=== PATIENT | male | born 1940 | race Hispanic/Latino ===

== ENCOUNTER 2021-05-06 15:39 | Inpatient (IN) | payer MEDICARE ==
[~2021-05-06 15:39] MED LIST: Iopamidol-370 76% 500 ML 1 ML ONE
[2021-05-06] MEDS ORDERED: Albuterol 200 PUFF (6.7GM INHALER) ONE (16:21)
[2021-05-06 16:24] LABS: #Basophils 0.1 thou/uL (0.0-0.2); #Eosinphils 0.2 thou/uL (0.0-0.7); #Monocytes 0.7 thou/uL (0.11-0.59); #Neutrophils 6.6 thou/uL (1.40-6.50); %Basophils 0.7 % (0.0-1.0); %Eosinophils 2.6 % (0.0-10.0); %Lymphocytes 12.1 % (21.0-51.0); %Neutrophils 76.7 % (42.0-75.0); Hemoglobin 13.8 g/dL (14.0-18.0); Mean Corpuscular HGB CONC 33.9 g/dL (32.0-36.0); Mean Corpuscular Hemoglobin 29.4 pg (27.0-31.0); Mean Corpuscular Volume 86.5 fL (78.0-98.0); Mean Platelet Volume 8.1 fL (7.4-10.4); Platelet Count 281 thou/uL (130-400); RBC Distribution Width 14.7 % (11.5-14.5); Red Blood Cell (RBC) Count 4.71 mill/uL (4.70-6.10); White Blood Cell (WBC) Count 8.6 thou/uL (4.8-10.8)
[2021-05-06 16:39] LABS: ALT (SGPT) 34 U/L (8-55); AST (SGOT) 20 U/L (5-34); Albumin 3.8 g/dL (3.4-4.8); Alkaline Phosphatase 149 U/L (40-110); Anion Gap 18 mmol/L (10-20); BUN (Urea Nitrogen) 14 mg/dL (8.4-25.7); Bilirubin, Total 0.8 mg/dL (0.2-1.2); Calc. Creatinine Clearance 0 mL/min (70-130); Calcium 8.9 mg/dL (7.8-10.44); Carbon Dioxide 19 mmol/L (23-31); Chloride 104 mmol/L (98-107); Globulin 3.8 g/dL (2.4-3.5); Glucose 143 mg/dL (83-110); Magnesium 1.8 mg/dL (1.6-2.6); Potassium 3.8 mmol/L (3.5-5.1); Protein, Total 7.6 g/dL (5.8-8.1); Sodium 137 mmol/L (136-145)
[2021-05-06] MEDS ORDERED: cefTRIAXone\\ROCEPHIN 2 GM VIAL ONE (16:43)
[2021-05-06] MEDS ORDERED: Azithromycin 500 MG VIAL ONE (16:43)
[2021-05-06] MEDS ORDERED: Furosemide 40 MG/4 ML VIAL ONE (17:14)
[2021-05-06 18:21] LABS: SARS-CoV-2 NAA Rapid Test Not Detected (NotDetected)
[2021-05-06 18:32] LABS: Bilirubin Negative (Negative); Blood, Urine Negative (Negative); Clarity Clear (Clear); Glucose, Urine (Dipstick) Normal (Negative); Ketone, Urine Negative (Negative); Leukocyte Negative Leu/uL (Negative); Nitrite Negative (Negative); Protein, Urine (Dipstick) 10 mg/dL (Neg-Trace); Specific Gravity, Urine 1.018 (1.002-1.036); Urobilinogen Normal mg/dL (Less than 2)
[2021-05-06] MEDS ORDERED: Ondansetron PF 4 MG/2 ML Vial IVP PRN (18:54)
[2021-05-06] MEDS ORDERED: Bisacodyl 5 MG TAB PO PRN (18:54)
[2021-05-06] MEDS ORDERED: HYDROcodone/Acetaminophen 5/325 mg Tablet PO PRN (18:54)
[2021-05-06] MEDS ORDERED: Senokot S 8.6-50 MG TAB PO PRN (18:54)
[2021-05-06] MEDS ORDERED: Enoxaparin Sodium 40 MG/0.4 ML SYRINGE SC SCH (19:00)
[2021-05-06] MEDS ORDERED: hydrALAZINE 20 MG/ML VIAL SLOW IVP PRN (19:13)
[2021-05-06 19:14] LABS: Lactic Acid 3.8 mmol/L (0.5-2.2)
[2021-05-06 19:22] LABS: Troponin I 0.034 ng/mL (< 0.028)
[2021-05-06] MEDS: Famotidine/PF 20 mg/2ml Vial SLOW IVP SCH (20:35)
[2021-05-06] MEDS: hydrOXYzine 25 MG TAB PO PRN (20:36)
[2021-05-06] MEDS ORDERED: Sodium Chloride 0.9% 250 ML IV SCH (20:45)
[2021-05-06] MEDS ORDERED: Dextrose 50% Abboject 50 ML SYRINGE SLOW IVP PRN (20:58)
[2021-05-06] MEDS ORDERED: Dextrose 5% in Water 1,000 ML IV PRN (20:58)
[2021-05-06] MEDS ORDERED: Insulin Regular 300 UNITS/3 ML VIAL SC PRN (20:58)
[2021-05-06] MEDS ORDERED: Furosemide 20 MG/2 ML VIAL SLOW IVP SCH (22:00)
[2021-05-06 22:55] LABS: Troponin I 0.038 ng/mL (< 0.028)
[2021-05-06 23:05] VITALS: BMI 24.3
[2021-05-07 06:22] LABS: #Eosinphils 0.2 thou/uL (0.0-0.7); #Monocytes 0.7 thou/uL (0.11-0.59); #Neutrophils 5.2 thou/uL (1.40-6.50); %Basophils 0.2 % (0.0-1.0); %Eosinophils 2.7 % (0.0-10.0); %Lymphocytes 14.2 % (21.0-51.0); %Monocytes 9.4 % (0.0-10.0); %Neutrophils 73.5 % (42.0-75.0); Hemoglobin 13.3 g/dL (14.0-18.0); Mean Corpuscular HGB CONC 33.1 g/dL (32.0-36.0); Mean Corpuscular Hemoglobin 28.7 pg (27.0-31.0); Mean Corpuscular Volume 86.9 fL (78.0-98.0); Mean Platelet Volume 8.3 fL (7.4-10.4); Platelet Count 242 thou/uL (130-400); Red Blood Cell (RBC) Count 4.61 mill/uL (4.70-6.10)
[2021-05-07] MEDS: hydrOXYzine 25 MG TAB PO PRN (06:28)
[2021-05-07] MEDS: Furosemide 20 MG/2 ML VIAL SLOW IVP SCH ×2 (06:28→17:11)
[2021-05-07 06:30] LABS: Hemoglobin A1c 5.6 % (4.0-6.0)
[2021-05-07 06:40] LABS: Lactic Acid 2.8 mmol/L (0.5-2.2)
[2021-05-07 06:54] LABS: Anion Gap 17 mmol/L (10-20); BUN (Urea Nitrogen) 15 mg/dL (8.4-25.7); Calc. Creatinine Clearance 86 mL/min (70-130); Calcium 8.8 mg/dL (7.8-10.44); Carbon Dioxide 20 mmol/L (23-31); Cardiac Risk 5.9 (Less than 4.5); Chloride 106 mmol/L (98-107); Cholesterol 123 mg/dl (< 200 Desired); Glucose 137 mg/dL (83-110); HDL Cholesterol 21 mg/dL (>60 Neg Risk); LDL Cholesterol, Calculated 84 mg/dL; Potassium 3.6 mmol/L (3.5-5.1); Sodium 139 mmol/L (136-145); Triglycerides 91 mg/dL (Less than 150)
[2021-05-07] MEDS: Famotidine/PF 20 mg/2ml Vial SLOW IVP SCH ×2 (08:49→21:16)
[2021-05-07] MEDS ORDERED: FLU VACC QS2021-22(65YR UP)/PF 240 MCG/0.7 ML SYRINGE IM ONE (09:00)
[2021-05-07] MEDS: HumaLOG 300 UNITS/3 ML VIAL SC PRN ×2 (10:58→17:11)
[2021-05-07] MEDS ORDERED: Diltiazem 125 MG in Sodium Chloride 0.9% 100 ML IVPB SCH ×2 (13:30→14:00)
[2021-05-07] MEDS: hydrOXYzine 25 MG TAB PO SCH ×2 (14:43→21:16)
[2021-05-07] MEDS: Acetaminophen 325 MG TAB PO PRN (16:34)
[2021-05-07] MEDS: metFORMIN 500 MG TAB PO SCH (17:11)
[2021-05-07] MEDS: Carvedilol 3.125 MG TAB PO SCH (17:11)
[2021-05-07] MEDS ORDERED: Azithromycin 500 MG in Sodium Chloride 0.9% 250 ML 250 ML IVPB SCH (18:00)
[2021-05-07] MEDS ORDERED: Enoxaparin Sodium 40 MG/0.4 ML SYRINGE SC SCH (21:00)
[2021-05-07] MEDS: Azithromycin 500 MG in Sodium Chloride 0.9% 250 ML 250 ML IVPB SCH (21:15)
[2021-05-07] MEDS: Atorvastatin Calcium 10 MG TAB PO SCH (21:16)
[2021-05-07] MEDS: Melatonin 3 MG TAB PO PRN (21:16)
[2021-05-07] MEDS: Docusate 100 MG CAP PO SCH (21:16)
[2021-05-07] MEDS: Enoxaparin Sodium 80 MG/0.8 ML SYRINGE SC SCH (21:17)
[2021-05-07] MEDS: cefTRIAXone\\ROCEPHIN 2 GM in Sodium Chloride 0.9% 100 ML IVPB SCH (22:11)
[2021-05-08 05:05] LABS: #Eosinphils 0.2 thou/uL (0.0-0.7); #Lymphocytes 1.1 thou/uL (1.20-3.40); #Monocytes 0.8 thou/uL (0.11-0.59); #Neutrophils 6.1 thou/uL (1.40-6.50); %Basophils 0.3 % (0.0-1.0); %Lymphocytes 13.7 % (21.0-51.0); %Monocytes 9.1 % (0.0-10.0); %Neutrophils 74.9 % (42.0-75.0); Hemoglobin 12.8 g/dL (14.0-18.0); Mean Corpuscular HGB CONC 33.4 g/dL (32.0-36.0); Mean Corpuscular Volume 86.6 fL (78.0-98.0); Mean Platelet Volume 8.5 fL (7.4-10.4); Platelet Count 236 thou/uL (130-400); RBC Distribution Width 14.9 % (11.5-14.5); Red Blood Cell (RBC) Count 4.44 mill/uL (4.70-6.10); White Blood Cell (WBC) Count 8.2 thou/uL (4.8-10.8)
[2021-05-08 05:29] LABS: Anion Gap 17 mmol/L (10-20); BUN (Urea Nitrogen) 23 mg/dL (8.4-25.7); Calc. Creatinine Clearance 81 mL/min (70-130); Calcium 8.7 mg/dL (7.8-10.44); Carbon Dioxide 21 mmol/L (23-31); Chloride 104 mmol/L (98-107); Glucose 109 mg/dL (83-110); Potassium 3.2 mmol/L (3.5-5.1); Sodium 139 mmol/L (136-145)
[2021-05-08] MEDS: hydrOXYzine 25 MG TAB PO SCH ×3 (06:15→21:01)
[2021-05-08] MEDS: Furosemide 20 MG/2 ML VIAL SLOW IVP SCH ×2 (06:15→18:22)
[2021-05-08] MEDS: Cholecalciferol 1,000 UNITS (25 MCG) TAB PO SCH (08:15)
[2021-05-08] MEDS: Aspirin 81 mg Enteric Coated Tablet PO SCH (08:15)
[2021-05-08] MEDS: glipiZIDE 10 MG TAB PO SCH (08:15)
[2021-05-08] MEDS: Carvedilol 3.125 MG TAB PO SCH ×3 (08:16→20:55)
[2021-05-08] MEDS: Docusate 100 MG CAP PO SCH ×2 (08:16→20:56)
[2021-05-08] MEDS: Enoxaparin Sodium 80 MG/0.8 ML SYRINGE SC SCH (08:16)
[2021-05-08] MEDS: Famotidine/PF 20 mg/2ml Vial SLOW IVP SCH ×2 (08:16→20:56)
[2021-05-08] MEDS: metFORMIN 500 MG TAB PO SCH ×2 (08:16→16:34)
[2021-05-08] MEDS: Fish Oil 1,000 MG CAP PO SCH (08:33)
[2021-05-08] MEDS ORDERED: Non-Formulary Item 1 EACH (Cholecalciferol (Vitamin D3) [Vitamin D3] 1,000 UNIT Capsule) PO SCH (09:00)
[2021-05-08] MEDS: Potassium Chloride 20 MEQ TAB PO SCH ×2 (11:51→16:35)
[2021-05-08] MEDS ORDERED: Communication Order-Pharmacy FS SCH (14:30)
[2021-05-08] MEDS ORDERED: Calcium Carbonate 500 MG ChewTAB PO PRN (16:40)
[2021-05-08] MEDS: cefTRIAXone\\ROCEPHIN 2 GM in Sodium Chloride 0.9% 100 ML IVPB SCH (20:55)
[2021-05-08] MEDS: Atorvastatin Calcium 10 MG TAB PO SCH (20:55)
[2021-05-08] MEDS: Guaifenesin DM 100-10/5 ML UDCUP PO PRN (22:46)
[2021-05-08] MEDS: Azithromycin 500 MG in Sodium Chloride 0.9% 250 ML 250 ML IVPB SCH (22:46)
[2021-05-09 05:28] LABS: #Eosinphils 0.4 thou/uL (0.0-0.7); #Neutrophils 5.4 thou/uL (1.40-6.50); %Basophils 0.5 % (0.0-1.0); %Eosinophils 4.8 % (0.0-10.0); %Lymphocytes 12.7 % (21.0-51.0); %Monocytes 12.3 % (0.0-10.0); %Neutrophils 69.7 % (42.0-75.0); Hemoglobin 13.1 g/dL (14.0-18.0); Mean Corpuscular HGB CONC 30.9 g/dL (32.0-36.0); Mean Corpuscular Hemoglobin 27.2 pg (27.0-31.0); Mean Corpuscular Volume 88.3 fL (78.0-98.0); Mean Platelet Volume 8.6 fL (7.4-10.4); Platelet Count 209 thou/uL (130-400); RBC Distribution Width 14.8 % (11.5-14.5); Red Blood Cell (RBC) Count 4.82 mill/uL (4.70-6.10); White Blood Cell (WBC) Count 7.7 thou/uL (4.8-10.8)
[2021-05-09] MEDS ORDERED: Sodium Chloride 0.9% 1,000 ML IV SCH ×2 (06:00→08:36)
[2021-05-09 06:05] LABS: Anion Gap 16 mmol/L (10-20); BUN (Urea Nitrogen) 17 mg/dL (8.4-25.7); Calc. Creatinine Clearance 86 mL/min (70-130); Calcium 8.6 mg/dL (7.8-10.44); Carbon Dioxide 19 mmol/L (23-31); Chloride 104 mmol/L (98-107); Glucose 107 mg/dL (83-110); Potassium 3.4 mmol/L (3.5-5.1); Sodium 136 mmol/L (136-145)
[2021-05-09] MEDS: hydrOXYzine 25 MG TAB PO SCH ×4 (06:14→23:15)
[2021-05-09] MEDS ORDERED: Heparin 10,000 UNITS/ 10 ML VIAL ONE (06:37)
[2021-05-09] MEDS ORDERED: Lidocaine 1% (PF) 30 ML VIAL ONE ×2 (06:38→07:22)
[2021-05-09] MEDS ORDERED: Midazolam HCl 2 mg/2 ml Vial ONE (07:15)
[2021-05-09] MEDS ORDERED: Fentanyl 100 MCG/2 ML VIAL ONE (07:15)
[2021-05-09] MEDS ORDERED: Atropine Sulfate 1 mg/1 ml Vial ONE (07:23)
[2021-05-09] MEDS ORDERED: Atropine Sulfate 1 mg/10 ml Syringe ONE (07:23)
[2021-05-09] MEDS: Furosemide 20 MG/2 ML VIAL SLOW IVP SCH (07:35)
[2021-05-09] MEDS ORDERED: Protamine Sulfate 50 MG/5 ML VIAL ONE (08:07)
[2021-05-09] MEDS ORDERED: Furosemide 20 MG/2 ML VIAL SLOW IVP SCH (08:30)
[2021-05-09] MEDS ORDERED: Acetaminophen/Codeine 30-300mg Tablet PO PRN ×2 (08:34)
[2021-05-09] MEDS ORDERED: Sodium Chloride 0.9% 200 ML IV PRN (08:34)
[2021-05-09] MEDS ORDERED: Nitroglycerin 0.4 MG TAB (25 Tab Bottle) SL PRN (08:34)
[2021-05-09] MEDS ORDERED: Iopamidol 370 76% 100 ML VIAL ONE (09:22)
[2021-05-09] MEDS ORDERED: Iopamidol 370 76% 50 ML VIAL FS ONE (09:22)
[2021-05-09] MEDS: glipiZIDE 10 MG TAB PO SCH (10:48)
[2021-05-09] MEDS: metFORMIN 500 MG TAB PO SCH ×2 (10:48→16:34)
[2021-05-09] MEDS: Famotidine/PF 20 mg/2ml Vial SLOW IVP SCH ×2 (11:03→20:37)
[2021-05-09] MEDS: Docusate 100 MG CAP PO SCH ×2 (11:03→20:37)
[2021-05-09] MEDS: Aspirin 81 mg Enteric Coated Tablet PO SCH (11:03)
[2021-05-09] MEDS: Amiodarone 200 MG TAB PO SCH ×2 (11:03→20:36)
[2021-05-09] MEDS: Fish Oil 1,000 MG CAP PO SCH (11:04)
[2021-05-09] MEDS: Cholecalciferol 1,000 UNITS (25 MCG) TAB PO SCH (11:06)
[2021-05-09] MEDS: Carvedilol 3.125 MG TAB PO SCH ×3 (11:08→20:37)
[2021-05-09] MEDS: Potassium Chloride 20 MEQ TAB PO SCH ×2 (11:14→15:22)
[2021-05-09] MEDS: Furosemide 40 MG/4 ML VIAL SLOW IVP SCH (15:22)
[2021-05-09] MEDS: Azithromycin 500 MG in Sodium Chloride 0.9% 250 ML 250 ML IVPB SCH (20:36)
[2021-05-09] MEDS: Guaifenesin DM 100-10/5 ML UDCUP PO PRN (20:37)
[2021-05-09] MEDS: Atorvastatin Calcium 20 MG TAB PO SCH (20:37)
[2021-05-09] MEDS: cefTRIAXone\\ROCEPHIN 2 GM in Sodium Chloride 0.9% 100 ML IVPB SCH (22:49)
[2021-05-09] MEDS: Melatonin 3 MG TAB PO PRN (22:50)
[2021-05-10 05:00] LABS: #Eosinphils 0.2 thou/uL (0.0-0.7); #Lymphocytes 1.3 thou/uL (1.20-3.40); #Monocytes 1.1 thou/uL (0.11-0.59); #Neutrophils 7.6 thou/uL (1.40-6.50); %Basophils 0.3 % (0.0-1.0); %Eosinophils 1.9 % (0.0-10.0); %Lymphocytes 12.9 % (21.0-51.0); %Monocytes 10.6 % (0.0-10.0); %Neutrophils 74.3 % (42.0-75.0); Hemoglobin 12.3 g/dL (14.0-18.0); Mean Corpuscular Hemoglobin 27.9 pg (27.0-31.0); Mean Platelet Volume 8.6 fL (7.4-10.4); Platelet Count 289 thou/uL (130-400); RBC Distribution Width 14.7 % (11.5-14.5); Red Blood Cell (RBC) Count 4.43 mill/uL (4.70-6.10); White Blood Cell (WBC) Count 10.2 thou/uL (4.8-10.8)
[2021-05-10] MEDS: Furosemide 40 MG/4 ML VIAL SLOW IVP SCH ×2 (05:16→14:59)
[2021-05-10 05:18] LABS: Anion Gap 13 mmol/L (10-20); BUN (Urea Nitrogen) 18 mg/dL (8.4-25.7); Calc. Creatinine Clearance 69 mL/min (70-130); Calcium 8.3 mg/dL (7.8-10.44); Carbon Dioxide 26 mmol/L (23-31); Chloride 101 mmol/L (98-107); Glucose 146 mg/dL (83-110); Potassium 4.4 mmol/L (3.5-5.1); Sodium 136 mmol/L (136-145)
[2021-05-10] MEDS: Carvedilol 3.125 MG TAB PO SCH ×3 (09:16→20:58)
[2021-05-10] MEDS: Fish Oil 1,000 MG CAP PO SCH (09:16)
[2021-05-10] MEDS: metFORMIN 500 MG TAB PO SCH (09:16)
[2021-05-10] MEDS: Cholecalciferol 1,000 UNITS (25 MCG) TAB PO SCH (09:16)
[2021-05-10] MEDS: Amiodarone 200 MG TAB PO SCH ×2 (09:17→20:58)
[2021-05-10] MEDS: Aspirin 81 mg Enteric Coated Tablet PO SCH (09:17)
[2021-05-10] MEDS: hydrOXYzine 25 MG TAB PO SCH ×2 (09:17→14:59)
[2021-05-10] MEDS: glipiZIDE 10 MG TAB PO SCH (09:17)
[2021-05-10] MEDS: Docusate 100 MG CAP PO SCH ×2 (09:17→20:58)
[2021-05-10] MEDS: Famotidine/PF 20 mg/2ml Vial SLOW IVP SCH ×2 (09:17→20:58)
[2021-05-10] MEDS: Acetaminophen 325 MG TAB PO PRN ×2 (11:38→22:38)
[2021-05-10] MEDS ORDERED: Benzonatate 100 MG CAP PO SCH (15:30)
[2021-05-10] MEDS ORDERED: Azithromycin 250 MG TAB PO SCH (20:00)
[2021-05-10] MEDS: Melatonin 3 MG TAB PO PRN (20:57)
[2021-05-10] MEDS: Benzonatate 100 MG CAP PO SCH (20:58)
[2021-05-10] MEDS: cefTRIAXone\\ROCEPHIN 2 GM in Sodium Chloride 0.9% 100 ML IVPB SCH (20:58)
[2021-05-10] MEDS: Atorvastatin Calcium 20 MG TAB PO SCH (20:58)
[2021-05-11] MEDS: hydrOXYzine 25 MG TAB PO SCH ×2 (01:41→08:51)
[2021-05-11 04:43] LABS: #Eosinphils 0.9 thou/uL (0.0-0.7); #Lymphocytes 1.2 thou/uL (1.20-3.40); #Monocytes 0.9 thou/uL (0.11-0.59); #Neutrophils 5.9 thou/uL (1.40-6.50); %Basophils 0.1 % (0.0-1.0); %Eosinophils 10.5 % (0.0-10.0); %Lymphocytes 13.3 % (21.0-51.0); %Monocytes 9.6 % (0.0-10.0); %Neutrophils 66.4 % (42.0-75.0); Mean Corpuscular HGB CONC 32.6 g/dL (32.0-36.0); Mean Corpuscular Hemoglobin 28.5 pg (27.0-31.0); Mean Corpuscular Volume 87.5 fL (78.0-98.0); Mean Platelet Volume 8.9 fL (7.4-10.4); Platelet Count 229 thou/uL (130-400); RBC Distribution Width 14.7 % (11.5-14.5); Red Blood Cell (RBC) Count 3.86 mill/uL (4.70-6.10); White Blood Cell (WBC) Count 8.9 thou/uL (4.8-10.8)
[2021-05-11 05:02] LABS: Anion Gap 13 mmol/L (10-20); BUN (Urea Nitrogen) 24 mg/dL (8.4-25.7); Calc. Creatinine Clearance 65 mL/min (70-130); Calcium 8.2 mg/dL (7.8-10.44); Carbon Dioxide 25 mmol/L (23-31); Chloride 100 mmol/L (98-107); Glucose 131 mg/dL (83-110); Potassium 3.7 mmol/L (3.5-5.1); Sodium 134 mmol/L (136-145)
[2021-05-11] MEDS: Furosemide 40 MG/4 ML VIAL SLOW IVP SCH (06:31)
[2021-05-11] MEDS ORDERED: Metolazone 5 MG TAB PO SCH (08:00)
[2021-05-11] MEDS: Amiodarone 200 MG TAB PO SCH (08:47)
[2021-05-11] MEDS: Fish Oil 1,000 MG CAP PO SCH (08:47)
[2021-05-11] MEDS: Docusate 100 MG CAP PO SCH (08:48)
[2021-05-11] MEDS: Aspirin 81 mg Enteric Coated Tablet PO SCH (08:48)
[2021-05-11] MEDS: glipiZIDE 10 MG TAB PO SCH (08:48)
[2021-05-11] MEDS: Famotidine/PF 20 mg/2ml Vial SLOW IVP SCH (08:48)
[2021-05-11] MEDS: Benzonatate 100 MG CAP PO SCH (08:48)
[2021-05-11] MEDS: Cholecalciferol 1,000 UNITS (25 MCG) TAB PO SCH (08:48)
[2021-05-11] MEDS: Carvedilol 3.125 MG TAB PO SCH (08:48)
[2021-05-11] MEDS ORDERED: Apixaban 5 MG TAB PO SCH (09:00)
[2021-05-11 11:29] VITALS: BP 119/63; TEMP 98.3
[2021-05-11] MEDS ORDERED: Furosemide 40 MG TAB PO SCH (14:00)
== END 2021-05-11 14:40 | disposition home or self-care (01) | DRG 871 ==
LOC: ERS 15:39 → 2NO 18:20
PROVIDERS: ADMIT Family Medicine; ATTEND Internal Medicine
PROC: 4A023N8 Measurement of Cardiac Sampling and Pressure, Bilateral, Percutaneous Approach (ICD-10-PCS; principal; 2021-05-09)
PROC: B2111ZZ Fluoroscopy of Multiple Coronary Arteries using Low Osmolar Contrast (ICD-10-PCS; 2021-05-09)
DX: A41.9 Sepsis, unspecified organism (principal); J18.9 Pneumonia, unspecified organism; I50.21 Acute systolic (congestive) heart failure; E87.1 Hypo-osmolality and hyponatremia; I11.0 Hypertensive heart disease with heart failure; E11.9 Type 2 diabetes mellitus without complications; F41.9 Anxiety disorder, unspecified; E11.69 Type 2 diabetes mellitus with other specified complication; I34.0 Nonrheumatic mitral (valve) insufficiency; Z20.822 Contact with and (suspected) exposure to COVID-19; L29.9 Pruritus, unspecified; E78.00 Pure hypercholesterolemia, unspecified; I35.0 Nonrheumatic aortic (valve) stenosis; I48.91 Unspecified atrial fibrillation; I44.7 Left bundle-branch block, unspecified; Z90.49 Acquired absence of other specified parts of digestive tract; Z87.891 Personal history of nicotine dependence; Z79.82 Long term (current) use of aspirin; Z79.899 Other long term (current) drug therapy; Z72.89 Other problems related to lifestyle
CPT/HCPCS: 0240U; 36415; 36416; 71045; 71275; 80048; 80053; 80061; 81003; 83036; 83605; 83735; 83880; 84443; 84484; 85025; 85347; 87040; 87086; 93005; 93010; 93306; 93460; 93798; 94640; 94664; 96365; 96366; 96375; 97139; 99152; 99153; J0456; J0461; J0696; J1644; J1650; J1815; J1940; J2001; J2250; J2720; J3010; J3490; J7030; J7050; J7620; Q9967; S0028

== ENCOUNTER 2021-06-06 18:06 | Inpatient (IN) | payer MEDICARE, OTHER ==
[2021-06-06] MEDS ORDERED: Atropine Sulfate 1 mg/10 ml Syringe ONE (19:57)
[2021-06-06 20:03] LABS: #Eosinphils 0.1 thou/uL (0.0-0.7); #Lymphocytes 0.8 thou/uL (1.20-3.40); #Monocytes 0.7 thou/uL (0.11-0.59); #Neutrophils 5.7 thou/uL (1.40-6.50); %Basophils 0.3 % (0.0-1.0); %Eosinophils 0.8 % (0.0-10.0); %Lymphocytes 10.4 % (21.0-51.0); %Monocytes 10.3 % (0.0-10.0); %Neutrophils 78.3 % (42.0-75.0); Hemoglobin 11.7 g/dL (14.0-18.0); Mean Corpuscular Hemoglobin 28.3 pg (27.0-31.0); Mean Corpuscular Volume 85.8 fL (78.0-98.0); Mean Platelet Volume 8.1 fL (7.4-10.4); Platelet Count 200 thou/uL (130-400); RBC Distribution Width 15.8 % (11.5-14.5); Red Blood Cell (RBC) Count 4.13 mill/uL (4.70-6.10); White Blood Cell (WBC) Count 7.2 thou/uL (4.8-10.8)
[2021-06-06] MEDS ORDERED: DOPamine 400 MG/D5W 250 ML 0 ML ONE (20:07)
[2021-06-06 20:23] LABS: INR-International Normal Ratio 1.7; Prothrombin Time 20.3 sec (12.0-14.7)
[2021-06-06 20:27] LABS: ALT (SGPT) 24 U/L (8-55); AST (SGOT) 24 U/L (5-34); Albumin 3.2 g/dL (3.4-4.8); Alkaline Phosphatase 131 U/L (40-110); Anion Gap 14 mmol/L (10-20); BUN (Urea Nitrogen) 23 mg/dL (8.4-25.7); Calc. Creatinine Clearance 0 mL/min (70-130); Calcium 8.4 mg/dL (7.8-10.44); Carbon Dioxide 24 mmol/L (23-31); Chloride 100 mmol/L (98-107); Globulin 3.5 g/dL (2.4-3.5); Glucose 113 mg/dL (83-110); Potassium 4.8 mmol/L (3.5-5.1); Protein, Total 6.7 g/dL (5.8-8.1); Sodium 133 mmol/L (136-145)
[2021-06-06 20:36] LABS: Lipase 13 U/L (8-78); Magnesium 1.5 mg/dL (1.6-2.6)
[2021-06-06] MEDS ORDERED: DOBUTamine 500 mg/250 ml 250 ML ONE (20:49)
[2021-06-06] MEDS ORDERED: Magnesium 2 GM/50 ML BAG (IN WATER) ONE (21:33)
[2021-06-06 22:36] LABS: SARS-CoV-2 NAA Rapid Test Not Detected (NotDetected)
[2021-06-06] MEDS ORDERED: Furosemide 40 MG/4 ML VIAL ONE (23:04)
[2021-06-06] MEDS ORDERED: DOBUTamine 500 mg/250 ml 500 MG in Premix Bag 1 BAG IVPB SCH (23:45)
[2021-06-06] MEDS ORDERED: Ondansetron PF 4 MG/2 ML Vial IVP PRN (23:48)
[2021-06-06] MEDS ORDERED: Dextrose 5% in Water 1,000 ML IV PRN (23:50)
[2021-06-06] MEDS ORDERED: Dextrose 50% Abboject 50 ML SYRINGE SLOW IVP PRN (23:50)
[2021-06-06] MEDS ORDERED: HumaLOG 300 UNITS/3 ML VIAL SC PRN (23:50)
[2021-06-07] MEDS ORDERED: Magnesium 2 GM/50 ML 2 GM in Premix Bag 1 BAG IVPB SCH (00:30)
[2021-06-07 01:02] VITALS: BMI 24.0
[2021-06-07 03:48] LABS: White Blood Cell (WBC) Count 5.9 thou/uL (4.8-10.8)
[2021-06-07 03:49] LABS: #Eosinphils 0.2 thou/uL (0.0-0.7); #Monocytes 0.6 thou/uL (0.11-0.59); #Neutrophils 4.1 thou/uL (1.40-6.50); %Basophils 0.4 % (0.0-1.0); %Eosinophils 2.9 % (0.0-10.0); %Lymphocytes 16.6 % (21.0-51.0); %Monocytes 10.3 % (0.0-10.0); %Neutrophils 69.7 % (42.0-75.0); Hemoglobin 11.3 g/dL (14.0-18.0); Mean Corpuscular HGB CONC 32.5 g/dL (32.0-36.0); Mean Corpuscular Hemoglobin 27.8 pg (27.0-31.0); Mean Corpuscular Volume 85.5 fL (78.0-98.0); Platelet Count 179 thou/uL (130-400); Red Blood Cell (RBC) Count 4.06 mill/uL (4.70-6.10)
[2021-06-07 04:01] LABS: Anion Gap 12 mmol/L (10-20); BUN (Urea Nitrogen) 21 mg/dL (8.4-25.7); Calc. Creatinine Clearance 70 mL/min (70-130); Calcium 8.6 mg/dL (7.8-10.44); Carbon Dioxide 26 mmol/L (23-31); Chloride 98 mmol/L (98-107); Glucose 107 mg/dL (83-110); Potassium 3.9 mmol/L (3.5-5.1); Sodium 132 mmol/L (136-145)
[2021-06-07 04:09] LABS: Magnesium 2.5 mg/dL (1.6-2.6)
[2021-06-07] MEDS: Furosemide 40 MG/4 ML VIAL SLOW IVP SCH ×2 (06:41→15:06)
[2021-06-07] MEDS: Enoxaparin Sodium 40 MG/0.4 ML SYRINGE SC SCH (10:31)
[2021-06-07] MEDS ORDERED: DOBUTamine 500 mg/250 ml 500 MG in Premix Bag 1 BAG IVPB SCH (10:57)
[2021-06-07 16:09] LABS: Troponin I 0.015 ng/mL (< 0.028)
[2021-06-07] MEDS: HumaLOG 300 UNITS/3 ML VIAL SC PRN (16:57)
[2021-06-07] MEDS: Benzonatate 100 MG CAP PO PRN (21:48)
[2021-06-08 03:37] LABS: #Eosinphils 0.3 thou/uL (0.0-0.7); #Lymphocytes 0.7 thou/uL (1.20-3.40); #Monocytes 0.4 thou/uL (0.11-0.59); #Neutrophils 3.8 thou/uL (1.40-6.50); %Basophils 0.3 % (0.0-1.0); %Eosinophils 6.5 % (0.0-10.0); %Lymphocytes 12.5 % (21.0-51.0); %Monocytes 8.3 % (0.0-10.0); %Neutrophils 72.4 % (42.0-75.0); Hemoglobin 11.4 g/dL (14.0-18.0); Mean Corpuscular Hemoglobin 28.2 pg (27.0-31.0); Mean Corpuscular Volume 85.5 fL (78.0-98.0); Mean Platelet Volume 7.8 fL (7.4-10.4); Platelet Count 170 thou/uL (130-400); RBC Distribution Width 15.7 % (11.5-14.5); Red Blood Cell (RBC) Count 4.02 mill/uL (4.70-6.10); White Blood Cell (WBC) Count 5.3 thou/uL (4.8-10.8)
[2021-06-08 03:59] LABS: Anion Gap 10 mmol/L (10-20); BUN (Urea Nitrogen) 16 mg/dL (8.4-25.7); Calc. Creatinine Clearance 77 mL/min (70-130); Calcium 8.3 mg/dL (7.8-10.44); Carbon Dioxide 28 mmol/L (23-31); Chloride 96 mmol/L (98-107); Glucose 109 mg/dL (83-110); Magnesium 1.9 mg/dL (1.6-2.6); Potassium 3.4 mmol/L (3.5-5.1); Sodium 131 mmol/L (136-145)
[2021-06-08] MEDS: Furosemide 40 MG/4 ML VIAL SLOW IVP SCH ×2 (05:34→14:30)
[2021-06-08] MEDS: Benzonatate 100 MG CAP PO PRN (06:03)
[2021-06-08] MEDS ORDERED: Potassium Chloride 20 MEQ TAB PO SCH (07:15)
[2021-06-08] MEDS: Enoxaparin Sodium 40 MG/0.4 ML SYRINGE SC SCH (08:39)
[2021-06-08] MEDS: Aspirin 81 mg Enteric Coated Tablet PO SCH (09:41)
[2021-06-08] MEDS: Sacubitril 49 MG/Valsartan 51 MG TABLET PO SCH (21:31)
[2021-06-09 03:58] LABS: #Eosinphils 0.8 thou/uL (0.0-0.7); #Lymphocytes 0.6 thou/uL (1.20-3.40); #Monocytes 0.4 thou/uL (0.11-0.59); #Neutrophils 3.2 thou/uL (1.40-6.50); %Basophils 0.4 % (0.0-1.0); %Eosinophils 15.9 % (0.0-10.0); %Lymphocytes 12.7 % (21.0-51.0); %Monocytes 7.2 % (0.0-10.0); %Neutrophils 63.8 % (42.0-75.0); Hemoglobin 11.8 g/dL (14.0-18.0); Mean Corpuscular HGB CONC 32.5 g/dL (32.0-36.0); Mean Corpuscular Hemoglobin 28.2 pg (27.0-31.0); Mean Corpuscular Volume 86.7 fL (78.0-98.0); Mean Platelet Volume 7.6 fL (7.4-10.4); Platelet Count 206 thou/uL (130-400); RBC Distribution Width 15.6 % (11.5-14.5); Red Blood Cell (RBC) Count 4.18 mill/uL (4.70-6.10)
[2021-06-09 04:03] LABS: Anion Gap 13 mmol/L (10-20); BUN (Urea Nitrogen) 17 mg/dL (8.4-25.7); Calc. Creatinine Clearance 65 mL/min (70-130); Calcium 8.6 mg/dL (7.8-10.44); Carbon Dioxide 25 mmol/L (23-31); Chloride 99 mmol/L (98-107); Glucose 141 mg/dL (83-110); Magnesium 1.7 mg/dL (1.6-2.6); Potassium 3.6 mmol/L (3.5-5.1); Sodium 133 mmol/L (136-145)
[2021-06-09] MEDS: Benzonatate 100 MG CAP PO PRN ×2 (05:10→20:58)
[2021-06-09] MEDS: Furosemide 40 MG/4 ML VIAL SLOW IVP SCH ×2 (05:10→14:42)
[2021-06-09] MEDS: Enoxaparin Sodium 40 MG/0.4 ML SYRINGE SC SCH (08:30)
[2021-06-09] MEDS: Aspirin 81 mg Enteric Coated Tablet PO SCH (08:30)
[2021-06-09] MEDS: Sacubitril 49 MG/Valsartan 51 MG TABLET PO SCH ×2 (08:30→20:58)
[2021-06-09] MEDS ORDERED: diphenhydrAMINE 30 GM TUBE TOP PRN (20:25)
[2021-06-09] MEDS: Apixaban 5 MG TAB PO SCH (20:58)
[2021-06-10] MEDS ORDERED: Benzonatate 100 MG CAP PO PRN (07:54)
[2021-06-10] MEDS ORDERED: Potassium Chloride 10 MEQ TAB PO SCH (08:00)
[2021-06-10] MEDS: Apixaban 5 MG TAB PO SCH ×2 (08:01→22:08)
[2021-06-10] MEDS: Aspirin 81 mg Enteric Coated Tablet PO SCH (08:01)
[2021-06-10] MEDS: Furosemide 40 MG TAB PO SCH ×2 (08:01→15:19)
[2021-06-10] MEDS: Sacubitril 49 MG/Valsartan 51 MG TABLET PO SCH ×2 (08:01→22:08)
[2021-06-10] MEDS: Amiodarone 200 MG TAB PO SCH (08:01)
[2021-06-10] MEDS ORDERED: Fish Oil 1,000 MG CAP PO SCH (09:00)
[2021-06-10] MEDS ORDERED: Spironolactone 25 MG TAB PO SCH (09:00)
[2021-06-10] MEDS: Docusate 100 MG CAP PO SCH ×2 (10:22→22:05)
[2021-06-10] MEDS: Carvedilol 3.125 MG TAB PO SCH ×3 (10:23→22:06)
[2021-06-10] MEDS: DorzolamidE/Timolol 2%/0.5% Ophth Soln 10 ml Bottle R EYE SCH ×2 (10:23→22:16)
[2021-06-10] MEDS: Brimonidine Tartrate 0.2% Ophth Soln 5 ml Bottle R EYE SCH ×3 (10:24→22:09)
[2021-06-10] MEDS: Cholecalciferol 1,000 UNITS (25 MCG) TAB PO SCH (10:27)
[2021-06-10] MEDS: HumaLOG 300 UNITS/3 ML VIAL SC PRN (11:47)
[2021-06-10] MEDS: metFORMIN 500 MG TAB PO SCH (17:54)
[2021-06-10] MEDS: Latanoprost 0.005% Ophth Soln 2.5 ml Bottle R EYE SCH (22:04)
[2021-06-10] MEDS: Atorvastatin Calcium 20 MG TAB PO SCH (22:06)
[2021-06-10] MEDS: Acetaminophen 325 MG TAB PO PRN (22:07)
[2021-06-11 04:57] LABS: #Eosinphils 1.5 thou/uL (0.0-0.7); #Lymphocytes 0.7 thou/uL (1.20-3.40); #Monocytes 0.6 thou/uL (0.11-0.59); #Neutrophils 4.1 thou/uL (1.40-6.50); %Eosinophils 22.3 % (0.0-10.0); %Lymphocytes 10.1 % (21.0-51.0); %Monocytes 8.1 % (0.0-10.0); %Neutrophils 59.5 % (42.0-75.0); Hemoglobin 13.3 g/dL (14.0-18.0); Mean Corpuscular Hemoglobin 27.6 pg (27.0-31.0); Mean Corpuscular Volume 86.1 fL (78.0-98.0); Mean Platelet Volume 7.2 fL (7.4-10.4); Platelet Count 253 thou/uL (130-400); RBC Distribution Width 15.8 % (11.5-14.5); Red Blood Cell (RBC) Count 4.83 mill/uL (4.70-6.10); White Blood Cell (WBC) Count 6.9 thou/uL (4.8-10.8)
[2021-06-11 05:13] LABS: Anion Gap 12 mmol/L (10-20); BUN (Urea Nitrogen) 23 mg/dL (8.4-25.7); Calc. Creatinine Clearance 66 mL/min (70-130); Calcium 8.1 mg/dL (7.8-10.44); Carbon Dioxide 25 mmol/L (23-31); Chloride 99 mmol/L (98-107); Glucose 106 mg/dL (83-110); Magnesium 1.6 mg/dL (1.6-2.6); Phosphorus 3.5 mg/dL (2.3-4.7); Potassium 3.7 mmol/L (3.5-5.1); Sodium 132 mmol/L (136-145)
[2021-06-11] MEDS: Brimonidine Tartrate 0.2% Ophth Soln 5 ml Bottle R EYE SCH ×3 (05:26→21:58)
[2021-06-11] MEDS: metFORMIN 500 MG TAB PO SCH ×2 (08:34→16:09)
[2021-06-11] MEDS: Docusate 100 MG CAP PO SCH ×2 (08:34→21:53)
[2021-06-11] MEDS: Aspirin 81 mg Enteric Coated Tablet PO SCH (08:34)
[2021-06-11] MEDS: Furosemide 40 MG TAB PO SCH ×2 (08:35→16:09)
[2021-06-11] MEDS: Spironolactone 25 MG TAB PO SCH (08:35)
[2021-06-11] MEDS: Cholecalciferol 1,000 UNITS (25 MCG) TAB PO SCH (08:35)
[2021-06-11] MEDS: Apixaban 5 MG TAB PO SCH ×2 (08:35→21:59)
[2021-06-11] MEDS: Carvedilol 3.125 MG TAB PO SCH ×3 (08:35→21:53)
[2021-06-11] MEDS: DorzolamidE/Timolol 2%/0.5% Ophth Soln 10 ml Bottle R EYE SCH ×2 (08:35→21:58)
[2021-06-11] MEDS: Amiodarone 200 MG TAB PO SCH (08:35)
[2021-06-11] MEDS: Sacubitril 49 MG/Valsartan 51 MG TABLET PO SCH ×2 (08:35→21:53)
[2021-06-11] MEDS: HumaLOG 300 UNITS/3 ML VIAL SC PRN (11:47)
[2021-06-11] MEDS: Acetaminophen 325 MG TAB PO PRN (21:52)
[2021-06-11] MEDS: Atorvastatin Calcium 20 MG TAB PO SCH (21:52)
[2021-06-11] MEDS: Latanoprost 0.005% Ophth Soln 2.5 ml Bottle R EYE SCH (21:55)
[2021-06-12] MEDS: Brimonidine Tartrate 0.2% Ophth Soln 5 ml Bottle R EYE SCH (06:01)
[2021-06-12 08:04] VITALS: BP 112/58; TEMP 97.8
[2021-06-12] MEDS: Furosemide 40 MG TAB PO SCH (08:48)
[2021-06-12] MEDS: Docusate 100 MG CAP PO SCH (08:48)
[2021-06-12] MEDS: metFORMIN 500 MG TAB PO SCH (08:48)
[2021-06-12] MEDS: Spironolactone 25 MG TAB PO SCH (08:48)
[2021-06-12] MEDS: Cholecalciferol 1,000 UNITS (25 MCG) TAB PO SCH (08:49)
[2021-06-12] MEDS: Aspirin 81 mg Enteric Coated Tablet PO SCH (08:49)
[2021-06-12] MEDS: Amiodarone 200 MG TAB PO SCH (08:49)
[2021-06-12] MEDS: Sacubitril 49 MG/Valsartan 51 MG TABLET PO SCH (08:49)
[2021-06-12] MEDS: Carvedilol 3.125 MG TAB PO SCH (08:49)
[2021-06-12] MEDS: Apixaban 5 MG TAB PO SCH (08:49)
[2021-06-12] MEDS: DorzolamidE/Timolol 2%/0.5% Ophth Soln 10 ml Bottle R EYE SCH (08:54)
== END 2021-06-12 11:16 | disposition home health service (06) | DRG 291 ==
LOC: ERS 18:06 → IMCU/EMU 21:33 → 2NO 06-09 08:21
PROVIDERS: ADMIT Internal Medicine; ATTEND Internal Medicine
DX: I11.0 Hypertensive heart disease with heart failure (principal); I50.23 Acute on chronic systolic (congestive) heart failure; I42.8 Other cardiomyopathies; F41.9 Anxiety disorder, unspecified; I25.10 Atherosclerotic heart disease of native coronary artery without angina pectoris; I35.0 Nonrheumatic aortic (valve) stenosis; I34.0 Nonrheumatic mitral (valve) insufficiency; E83.42 Hypomagnesemia; R00.1 Bradycardia, unspecified; I48.0 Paroxysmal atrial fibrillation; E11.69 Type 2 diabetes mellitus with other specified complication; D64.9 Anemia, unspecified; E78.00 Pure hypercholesterolemia, unspecified; I44.7 Left bundle-branch block, unspecified; H40.9 Unspecified glaucoma; I44.30 Unspecified atrioventricular block; Z20.822 Contact with and (suspected) exposure to COVID-19; Z90.49 Acquired absence of other specified parts of digestive tract; Z87.891 Personal history of nicotine dependence; Z79.82 Long term (current) use of aspirin; Z79.899 Other long term (current) drug therapy
CPT/HCPCS: 0240U; 36415; 36416; 71045; 80048; 80053; 83690; 83735; 83880; 84100; 84443; 84484; 85025; 85610; 85730; 90471; 90732; 93005; 93010; 93306; 93798; 96365; 96366; 96375; G0009; J0461; J1250; J1265; J1650; J1815; J1940; J3475

== ENCOUNTER 2021-08-26 13:13 | Inpatient (IN) | payer MEDICARE, OTHER ==
[2021-08-26] MEDS ORDERED: Acetaminophen 500 MG TAB ONE ×2 (13:52→13:53)
[2021-08-26 14:02] LABS: Hemoglobin 12.3 g/dL (14.0-18.0); Mean Corpuscular HGB CONC 33.7 g/dL (32.0-36.0); Mean Corpuscular Hemoglobin 30.1 pg (27.0-31.0); Mean Corpuscular Volume 89.3 fL (78.0-98.0); Mean Platelet Volume 7.1 fL (7.4-10.4); Platelet Count 270 thou/uL (130-400); RBC Distribution Width 17.8 % (11.5-14.5); Red Blood Cell (RBC) Count 4.09 mill/uL (4.70-6.10); White Blood Cell (WBC) Count 9.9 thou/uL (4.8-10.8)
[2021-08-26 14:21] LABS: ALT (SGPT) 15 U/L (8-55); AST (SGOT) 17 U/L (5-34); Albumin 3.8 g/dL (3.4-4.8); Alkaline Phosphatase 144 U/L (40-110); Anion Gap 15 mmol/L (10-20); BUN (Urea Nitrogen) 17 mg/dL (8.4-25.7); Bilirubin, Total 0.4 mg/dL (0.2-1.2); Calc. Creatinine Clearance 0 mL/min (70-130); Calcium 8.9 mg/dL (7.8-10.44); Carbon Dioxide 25 mmol/L (23-31); Chloride 102 mmol/L (98-107); Globulin 3.8 g/dL (2.4-3.5); Glucose 164 mg/dL (83-110); Potassium 4.1 mmol/L (3.5-5.1); Protein, Total 7.6 g/dL (5.8-8.1); Sodium 138 mmol/L (136-145)
[2021-08-26 14:23] LABS: Anisocytosis SLIGHT = 6-15 cells (100X) (0-5/hpf); Eosinophils 47 % (0-10); Lymphocytes 10 % (21-51); MDiff Complete? YES; Monocytes 6 % (0-10); Neutrophil 34 % (42-75); Platelet Morphology Comment Appears Adequate; Polychromasia SLIGHT = 2-3 cells (100X) (0-2/hpf); Reactive Lymphocytes 1 % (0-10)
[2021-08-26] MEDS ORDERED: methylPREDNISolone Sod Succ/PF 125 MG/2 ML VIAL ONE ×2 (14:50→17:05)
[2021-08-26 15:20] LABS: Bacteria/HPF None Seen HPF (None Seen); Bilirubin Negative (Negative); Blood, Urine Negative (Negative); Clarity Clear (Clear); Glucose, Urine (Dipstick) Normal (Negative); Ketone, Urine Trace mg/dL (Negative); Leukocyte 25 Leu/uL (Negative); Nitrite Negative (Negative); Protein, Urine (Dipstick) 20 mg/dL (Neg-Trace); RBC/HPF 0-3 HPF (0-3); Specific Gravity, Urine 1.028 (1.002-1.036); Squamous Epithelial None Seen HPF (0-3); WBC/HPF 0-3 HPF (0-3)
[2021-08-26 15:21] LABS: Sperm/HPF 1+ HPF (None Seen)
[2021-08-26] MEDS ORDERED: cefTRIAXone\\ROCEPHIN 1 GM VIAL ONE (15:45)
[2021-08-26] MEDS ORDERED: Vancomycin 1.5 GRAM/300 ML BAG 1.5 GM in Premix Bag 1 BAG IVPB SCH (16:00)
[2021-08-26] MEDS ORDERED: Ondansetron PF 4 MG/2 ML Vial IVP PRN (16:19)
[2021-08-26] MEDS ORDERED: methylPREDNISolone Sod Succ/PF 125 MG/2 ML VIAL IVP SCH (16:30)
[2021-08-26] MEDS ORDERED: Bumetanide 1 MG/4 ML VIAL IVP SCH (16:30)
[2021-08-26] MEDS ORDERED: methylPREDNISolone Sod Succ 40 MG VIAL ONE ×2 (17:07→17:09)
[2021-08-26] MEDS ORDERED: diphenhydrAMINE 25 MG CAP ONE (17:10)
[2021-08-26 18:33] VITALS: BMI 24.0
[2021-08-26] MEDS: diphenhydrAMINE 25 MG CAP PO PRN (19:37)
[2021-08-27] MEDS: diphenhydrAMINE 25 MG CAP PO PRN (02:28)
[2021-08-27 04:54] LABS: #Lymphocytes 0.9 thou/uL (1.20-3.40); #Monocytes 0.2 thou/uL (0.11-0.59); %Basophils 0.4 % (0.0-1.0); %Eosinophils 0.7 % (0.0-10.0); %Monocytes 3.6 % (0.0-10.0); %Neutrophils 78.3 % (42.0-75.0); Mean Corpuscular HGB CONC 33.4 g/dL (32.0-36.0); Mean Corpuscular Hemoglobin 29.3 pg (27.0-31.0); Mean Corpuscular Volume 87.8 fL (78.0-98.0); Mean Platelet Volume 7.2 fL (7.4-10.4); Platelet Count 201 thou/uL (130-400); RBC Distribution Width 17.3 % (11.5-14.5); White Blood Cell (WBC) Count 5.1 thou/uL (4.8-10.8)
[2021-08-27 05:07] LABS: Anion Gap 14 mmol/L (10-20); BUN (Urea Nitrogen) 19 mg/dL (8.4-25.7); Calc. Creatinine Clearance 89 mL/min (70-130); Calcium 8.6 mg/dL (7.8-10.44); Carbon Dioxide 22 mmol/L (23-31); Chloride 104 mmol/L (98-107); Glucose 163 mg/dL (83-110); Sodium 136 mmol/L (136-145)
[2021-08-27] MEDS: Bumetanide 1 MG/4 ML VIAL IVP SCH ×2 (06:18→17:59)
[2021-08-27] MEDS ORDERED: predniSONE 20 MG TAB PO SCH (08:00)
[2021-08-27] MEDS: Aspirin 81 mg Enteric Coated Tablet PO SCH (10:54)
[2021-08-27] MEDS ORDERED: diphenhydrAMINE 50 MG CAP PO PRN (10:56)
[2021-08-27] MEDS: Acetaminophen 325 MG TAB PO PRN (10:57)
[2021-08-27] MEDS ORDERED: Famotidine 20 MG TAB PO SCH (11:15)
[2021-08-27] MEDS ORDERED: Loratadine 10 MG TAB PO SCH (12:00)
[2021-08-27] MEDS ORDERED: methylPREDNISolone Sod Succ 40 MG VIAL IVP SCH (12:30)
[2021-08-27] MEDS ORDERED: Amoxicillin/Potassium Clav 500 MG TAB PO SCH (12:45)
[2021-08-27] MEDS ORDERED: Calamine/Zinc Oxide 177 ML LOTION TP SCH (12:45)
[2021-08-27] MEDS: diphenhydrAMINE 50 MG CAP PO SCH ×3 (12:47→23:31)
[2021-08-27 17:15] LABS: SARS-CoV-2 PCR by NAA Not Detected (NotDetected)
[2021-08-27] MEDS: metFORMIN 500 MG TAB PO SCH (17:56)
[2021-08-27] MEDS: methylPREDNISolone Sod Succ 40 MG VIAL IVP SCH ×2 (17:56→23:37)
[2021-08-27] MEDS: Calamine/Zinc Oxide 177 ML LOTION TP SCH ×2 (17:57→20:56)
[2021-08-27] MEDS: Brimonidine Tartrate 0.2% Ophth Soln 5 ml Bottle R EYE SCH ×2 (17:59→20:54)
[2021-08-27] MEDS: Sacubitril 49 MG/Valsartan 51 MG TABLET PO SCH (20:53)
[2021-08-27] MEDS: Famotidine 20 MG TAB PO SCH (20:53)
[2021-08-27] MEDS: Amoxicillin/Potassium Clav 500 MG TAB PO SCH (20:53)
[2021-08-27] MEDS: Amlodipine 10 MG TAB PO SCH (20:53)
[2021-08-27] MEDS: Carvedilol 3.125 MG TAB PO SCH (20:53)
[2021-08-27] MEDS: DorzolamidE/Timolol 2%/0.5% Ophth Soln 10 ml Bottle R EYE SCH (20:54)
[2021-08-27] MEDS: Latanoprost 0.005% Ophth Soln 2.5 ml Bottle R EYE SCH (20:55)
[2021-08-28 05:11] LABS: Anion Gap 13 mmol/L (10-20); BUN (Urea Nitrogen) 24 mg/dL (8.4-25.7); Calc. Creatinine Clearance 84 mL/min (70-130); Calcium 8.6 mg/dL (7.8-10.44); Carbon Dioxide 23 mmol/L (23-31); Chloride 105 mmol/L (98-107); Glucose 261 mg/dL (83-110); Potassium 3.9 mmol/L (3.5-5.1); Sodium 137 mmol/L (136-145)
[2021-08-28] MEDS: Bumetanide 1 MG/4 ML VIAL IVP SCH ×2 (05:39→17:20)
[2021-08-28] MEDS: Brimonidine Tartrate 0.2% Ophth Soln 5 ml Bottle R EYE SCH ×3 (05:44→21:38)
[2021-08-28] MEDS: methylPREDNISolone Sod Succ 40 MG VIAL IVP SCH ×4 (05:44→23:04)
[2021-08-28] MEDS: diphenhydrAMINE 50 MG CAP PO SCH ×4 (05:44→23:03)
[2021-08-28] MEDS: Cholecalciferol 1,000 UNITS (25 MCG) TAB PO SCH (10:27)
[2021-08-28] MEDS: Spironolactone 25 MG TAB PO SCH (10:27)
[2021-08-28] MEDS: Loratadine 10 MG TAB PO SCH (10:27)
[2021-08-28] MEDS: Amoxicillin/Potassium Clav 500 MG TAB PO SCH (10:28)
[2021-08-28] MEDS: Carvedilol 3.125 MG TAB PO SCH ×2 (10:28→21:38)
[2021-08-28] MEDS: metFORMIN 500 MG TAB PO SCH ×2 (10:29→17:23)
[2021-08-28] MEDS: Calamine/Zinc Oxide 177 ML LOTION TP SCH ×3 (10:29→21:38)
[2021-08-28] MEDS: Aspirin 81 mg Enteric Coated Tablet PO SCH (10:29)
[2021-08-28] MEDS: Sacubitril 49 MG/Valsartan 51 MG TABLET PO SCH ×2 (10:29→21:37)
[2021-08-28] MEDS: DorzolamidE/Timolol 2%/0.5% Ophth Soln 10 ml Bottle R EYE SCH ×2 (10:30→21:38)
[2021-08-28] MEDS: Famotidine 20 MG TAB PO SCH ×2 (10:30→21:37)
[2021-08-28] MEDS: Amiodarone 200 MG TAB PO SCH (10:30)
[2021-08-28] MEDS: Amlodipine 10 MG TAB PO SCH (21:37)
[2021-08-28] MEDS: Latanoprost 0.005% Ophth Soln 2.5 ml Bottle R EYE SCH (21:38)
[2021-08-28] MEDS: VANCOMYCIN 1.25 GM/250 ML BAG 1.25 GM in Premix Bag 1 BAG IVPB SCH (21:39)
[2021-08-29] MEDS: Brimonidine Tartrate 0.2% Ophth Soln 5 ml Bottle R EYE SCH ×3 (04:45→20:25)
[2021-08-29] MEDS: diphenhydrAMINE 50 MG CAP PO SCH ×4 (04:46→23:06)
[2021-08-29] MEDS: Bumetanide 1 MG/4 ML VIAL IVP SCH (04:46)
[2021-08-29] MEDS: methylPREDNISolone Sod Succ 40 MG VIAL IVP SCH ×4 (04:46→23:06)
[2021-08-29 06:11] LABS: Anion Gap 12 mmol/L (10-20); BUN (Urea Nitrogen) 28 mg/dL (8.4-25.7); Calc. Creatinine Clearance 80 mL/min (70-130); Calcium 8.8 mg/dL (7.8-10.44); Carbon Dioxide 23 mmol/L (23-31); Chloride 103 mmol/L (98-107); Glucose 252 mg/dL (83-110); Potassium 4.1 mmol/L (3.5-5.1); Sodium 134 mmol/L (136-145)
[2021-08-29] MEDS: Aspirin 81 mg Enteric Coated Tablet PO SCH (08:22)
[2021-08-29] MEDS: Cholecalciferol 1,000 UNITS (25 MCG) TAB PO SCH (08:22)
[2021-08-29] MEDS: Spironolactone 25 MG TAB PO SCH (08:22)
[2021-08-29] MEDS: Loratadine 10 MG TAB PO SCH (08:23)
[2021-08-29] MEDS: DorzolamidE/Timolol 2%/0.5% Ophth Soln 10 ml Bottle R EYE SCH ×2 (08:23→20:26)
[2021-08-29] MEDS: Sacubitril 49 MG/Valsartan 51 MG TABLET PO SCH ×2 (08:23→20:24)
[2021-08-29] MEDS: metFORMIN 500 MG TAB PO SCH ×2 (08:23→16:58)
[2021-08-29] MEDS: Amiodarone 200 MG TAB PO SCH (08:23)
[2021-08-29] MEDS: Carvedilol 3.125 MG TAB PO SCH ×2 (08:23→20:24)
[2021-08-29] MEDS: Calamine/Zinc Oxide 177 ML LOTION TP SCH ×3 (08:23→20:25)
[2021-08-29] MEDS: Famotidine 20 MG TAB PO SCH ×2 (08:23→20:24)
[2021-08-29] MEDS: Furosemide 40 MG TAB PO SCH ×2 (09:41→13:48)
[2021-08-29] MEDS: VANCOMYCIN 1.25 GM/250 ML BAG 1.25 GM in Premix Bag 1 BAG IVPB SCH ×2 (09:41→20:23)
[2021-08-29] MEDS: Latanoprost 0.005% Ophth Soln 2.5 ml Bottle R EYE SCH (20:24)
[2021-08-29] MEDS: Amlodipine 10 MG TAB PO SCH (20:25)
[2021-08-30] MEDS: Brimonidine Tartrate 0.2% Ophth Soln 5 ml Bottle R EYE SCH ×3 (06:13→21:09)
[2021-08-30] MEDS: diphenhydrAMINE 50 MG CAP PO SCH ×3 (06:13→16:56)
[2021-08-30] MEDS: methylPREDNISolone Sod Succ 40 MG VIAL IVP SCH ×3 (06:13→15:13)
[2021-08-30] MEDS: DorzolamidE/Timolol 2%/0.5% Ophth Soln 10 ml Bottle R EYE SCH ×2 (08:19→21:10)
[2021-08-30] MEDS: Spironolactone 25 MG TAB PO SCH (08:19)
[2021-08-30] MEDS: Calamine/Zinc Oxide 177 ML LOTION TP SCH ×3 (08:20→21:09)
[2021-08-30] MEDS: Furosemide 40 MG TAB PO SCH ×2 (08:20→15:10)
[2021-08-30] MEDS: Amiodarone 200 MG TAB PO SCH (08:20)
[2021-08-30] MEDS: Loratadine 10 MG TAB PO SCH (08:20)
[2021-08-30] MEDS: metFORMIN 500 MG TAB PO SCH ×2 (08:20→16:56)
[2021-08-30] MEDS: Aspirin 81 mg Enteric Coated Tablet PO SCH (08:20)
[2021-08-30] MEDS: Carvedilol 3.125 MG TAB PO SCH ×2 (08:20→21:08)
[2021-08-30] MEDS: Cholecalciferol 1,000 UNITS (25 MCG) TAB PO SCH (08:20)
[2021-08-30] MEDS: Sacubitril 49 MG/Valsartan 51 MG TABLET PO SCH ×2 (08:20→21:08)
[2021-08-30] MEDS: Famotidine 20 MG TAB PO SCH ×2 (08:20→21:10)
[2021-08-30] MEDS: VANCOMYCIN 1.25 GM/250 ML BAG 1.25 GM in Premix Bag 1 BAG IVPB SCH ×2 (08:21→21:08)
[2021-08-30] MEDS: Amlodipine 10 MG TAB PO SCH (21:09)
[2021-08-30] MEDS: Latanoprost 0.005% Ophth Soln 2.5 ml Bottle R EYE SCH (21:10)
[2021-08-30] MEDS: Acetaminophen 325 MG TAB PO PRN (21:12)
[2021-08-30] MEDS ORDERED: HumaLOG 300 UNITS/3 ML VIAL SC SCH (21:21)
[2021-08-31] MEDS: diphenhydrAMINE 50 MG CAP PO SCH ×4 (00:23→17:07)
[2021-08-31] MEDS ORDERED: Dextrose 5% in Water 1,000 ML IV PRN (01:11)
[2021-08-31] MEDS ORDERED: HumaLOG 300 UNITS/3 ML VIAL SC PRN (01:11)
[2021-08-31] MEDS ORDERED: Dextrose 50% Abboject 50 ML SYRINGE SLOW IVP PRN (01:11)
[2021-08-31] MEDS: Brimonidine Tartrate 0.2% Ophth Soln 5 ml Bottle R EYE SCH ×3 (05:19→21:27)
[2021-08-31] MEDS: methylPREDNISolone Sod Succ 40 MG VIAL IVP SCH (05:19)
[2021-08-31] MEDS: HumaLOG 300 UNITS/3 ML VIAL SC PRN (05:48)
[2021-08-31] MEDS: Carvedilol 3.125 MG TAB PO SCH ×2 (11:21→21:25)
[2021-08-31] MEDS: Aspirin 81 mg Enteric Coated Tablet PO SCH (11:22)
[2021-08-31] MEDS: Amiodarone 200 MG TAB PO SCH (11:22)
[2021-08-31] MEDS: Cholecalciferol 1,000 UNITS (25 MCG) TAB PO SCH (11:22)
[2021-08-31] MEDS: Sacubitril 49 MG/Valsartan 51 MG TABLET PO SCH ×2 (11:30→21:24)
[2021-08-31] MEDS: Famotidine 20 MG TAB PO SCH ×2 (11:30→21:25)
[2021-08-31] MEDS: metFORMIN 500 MG TAB PO SCH ×2 (11:30→17:07)
[2021-08-31] MEDS: Loratadine 10 MG TAB PO SCH (11:30)
[2021-08-31] MEDS: Furosemide 40 MG TAB PO SCH ×2 (11:31→17:06)
[2021-08-31] MEDS: Spironolactone 25 MG TAB PO SCH (11:31)
[2021-08-31] MEDS: Calamine/Zinc Oxide 177 ML LOTION TP SCH ×3 (11:31→21:27)
[2021-08-31] MEDS: VANCOMYCIN 1.25 GM/250 ML BAG 1.25 GM in Premix Bag 1 BAG IVPB SCH ×2 (11:32→21:23)
[2021-08-31] MEDS: DorzolamidE/Timolol 2%/0.5% Ophth Soln 10 ml Bottle R EYE SCH ×2 (11:32→21:29)
[2021-08-31] MEDS ORDERED: Senokot S 8.6-50 MG TAB PO SCH (14:30)
[2021-08-31] MEDS: Senokot S 8.6-50 MG TAB PO SCH (21:24)
[2021-08-31] MEDS: Amlodipine 10 MG TAB PO SCH (21:25)
[2021-08-31] MEDS: Latanoprost 0.005% Ophth Soln 2.5 ml Bottle R EYE SCH (21:28)
[2021-09-01] MEDS: diphenhydrAMINE 50 MG CAP PO SCH ×3 (00:40→14:55)
[2021-09-01] MEDS: Brimonidine Tartrate 0.2% Ophth Soln 5 ml Bottle R EYE SCH ×2 (06:07→14:56)
[2021-09-01] MEDS: HumaLOG 300 UNITS/3 ML VIAL SC PRN (06:25)
[2021-09-01 08:24] LABS: Vancomycin, Trough 16.1 ug/mL
[2021-09-01] MEDS: Furosemide 40 MG TAB PO SCH ×2 (08:58→14:56)
[2021-09-01] MEDS: Sacubitril 49 MG/Valsartan 51 MG TABLET PO SCH (08:59)
[2021-09-01] MEDS: Famotidine 20 MG TAB PO SCH (08:59)
[2021-09-01] MEDS: metFORMIN 500 MG TAB PO SCH (08:59)
[2021-09-01] MEDS: Spironolactone 25 MG TAB PO SCH (08:59)
[2021-09-01] MEDS: Amiodarone 200 MG TAB PO SCH (09:00)
[2021-09-01] MEDS ORDERED: Vancomycin HCl 1.25 GM in Sodium Chloride 0.9% 250 ML 250 ML IVPB SCH (09:00)
[2021-09-01] MEDS: Cholecalciferol 1,000 UNITS (25 MCG) TAB PO SCH (09:00)
[2021-09-01] MEDS: Loratadine 10 MG TAB PO SCH (09:00)
[2021-09-01] MEDS: Carvedilol 3.125 MG TAB PO SCH (09:00)
[2021-09-01] MEDS: Aspirin 81 mg Enteric Coated Tablet PO SCH (09:00)
[2021-09-01] MEDS ORDERED: methylPREDNISolone Sod Succ 40 MG VIAL IVP SCH (09:00)
[2021-09-01] MEDS: Calamine/Zinc Oxide 177 ML LOTION TP SCH (09:01)
[2021-09-01] MEDS: Senokot S 8.6-50 MG TAB PO SCH (09:01)
[2021-09-01] MEDS: DorzolamidE/Timolol 2%/0.5% Ophth Soln 10 ml Bottle R EYE SCH (09:02)
[2021-09-01 12:56] VITALS: BP 138/64; TEMP 98.7
== END 2021-09-01 15:25 | disposition home or self-care (01) | DRG 603 ==
LOC: ERS 13:13 → 2NO 16:56 → OBSVTOIN 08-27 11:08
PROVIDERS: ADMIT Internal Medicine; ATTEND Family Medicine
DX: L03.90 Cellulitis, unspecified (principal); I50.22 Chronic systolic (congestive) heart failure; R78.81 Bacteremia; Z20.822 Contact with and (suspected) exposure to COVID-19; I48.91 Unspecified atrial fibrillation; I25.10 Atherosclerotic heart disease of native coronary artery without angina pectoris; I11.0 Hypertensive heart disease with heart failure; E11.9 Type 2 diabetes mellitus without complications; D64.9 Anemia, unspecified; L30.9 Dermatitis, unspecified; I25.5 Ischemic cardiomyopathy; B95.62 Methicillin resistant Staphylococcus aureus infection as the cause of diseases classified elsewhere; Z79.84 Long term (current) use of oral hypoglycemic drugs; Z79.01 Long term (current) use of anticoagulants; Z79.899 Other long term (current) drug therapy; Z90.49 Acquired absence of other specified parts of digestive tract; Z87.891 Personal history of nicotine dependence
CPT/HCPCS: 36415; 36416; 70450; 71045; 80048; 80053; 80202; 81003; 81015; 83880; 84484; 85025; 85060; 85652; 86140; 87040; 87077; 87086; 87149; 87186; 93005; 93970; 96365; 96366; 96367; 96372; 96375; G0378; J0696; J1815; J2920; J2930; J3370; J3490; J7050; U0003; U0005

== ENCOUNTER 2022-02-19 13:26 | Emergency (ER) | payer MEDICARE, OTHER ==
[2022-02-19 13:56] LABS: #Lymphocytes 0.9 thou/uL (1.20-3.40); #Monocytes 0.8 thou/uL (0.11-0.59); #Neutrophils 4.2 thou/uL (1.40-6.50); %Basophils 0.4 % (0.0-1.0); %Eosinophils 14.5 % (0.0-10.0); %Lymphocytes 13.2 % (21.0-51.0); %Monocytes 11.7 % (0.0-10.0); %Neutrophils 60.2 % (42.0-75.0); Hemoglobin 11.9 g/dL (14.0-18.0); Mean Corpuscular Hemoglobin 31.1 pg (27.0-31.0); Mean Corpuscular Volume 91.5 fL (78.0-98.0); Mean Platelet Volume 7.2 fL (7.4-10.4); Platelet Count 233 thou/uL (130-400); RBC Distribution Width 14.1 % (11.5-14.5); Red Blood Cell (RBC) Count 3.83 mill/uL (4.70-6.10)
[2022-02-19 14:19] LABS: ALT (SGPT) 20 U/L (8-55); AST (SGOT) 21 U/L (5-34); Albumin 4.3 g/dL (3.4-4.8); Alkaline Phosphatase 127 U/L (40-110); Anion Gap 21 mmol/L (10-20); BUN (Urea Nitrogen) 18 mg/dL (8.4-25.7); Bilirubin, Total 0.8 mg/dL (0.2-1.2); Calc. Creatinine Clearance 0 mL/min (70-130); Calcium 9.3 mg/dL (7.8-10.44); Carbon Dioxide 27 mmol/L (23-31); Chloride 95 mmol/L (98-107); Estimated GFR 45; Glucose 157 mg/dL (83-110); Potassium 4.3 mmol/L (3.5-5.1); Protein, Total 8.3 g/dL (5.8-8.1); Sodium 139 mmol/L (136-145)
[2022-02-19] MEDS ORDERED: Furosemide 40 MG/4 ML VIAL ONE (15:01)
[2022-02-19] MEDS ORDERED: Acetaminophen 500 MG TAB ONE (15:10)
== END 2022-02-19 15:48 | disposition home or self-care (01) ==
LOC: ERS 13:26
DX: I11.0 Hypertensive heart disease with heart failure (principal); I50.9 Heart failure, unspecified; Z87.891 Personal history of nicotine dependence
CPT/HCPCS: 71045; 80053; 83880; 84484; 85025; 93005; 96374; J1940

== ENCOUNTER 2022-08-27 06:04 | Emergency (ER) | payer MEDICARE, OTHER ==
[2022-08-27] MEDS ORDERED: HYDROcodone/Acetaminophen 10/325 mg Tablet ONE (07:42)
[2022-08-27] MEDS ORDERED: Boostrix 0.5 ML (Tdap) VIAL (>/=7 yrs of age) ONE (07:42)
== END 2022-08-27 08:55 | disposition home or self-care (01) ==
LOC: ERS 06:04
DX: S09.90XA Unspecified injury of head, initial encounter (principal); E11.9 Type 2 diabetes mellitus without complications; I11.0 Hypertensive heart disease with heart failure; I50.9 Heart failure, unspecified; W18.30XA Fall on same level, unspecified, initial encounter; Z87.891 Personal history of nicotine dependence; Z23 Encounter for immunization
CPT/HCPCS: 70450; 72125; 90471; 90715

== ENCOUNTER 2022-10-03 13:08 | Inpatient (IN) | payer OTHER ==
[2022-10-03 15:36] LABS: #Eosinphils 0.6 thou/uL (0.0-0.7); #Lymphocytes 1.1 thou/uL (1.20-3.40); #Neutrophils 5.9 thou/uL (1.40-6.50); %Basophils 0.2 % (0.0-1.0); %Eosinophils 7.1 % (0.0-10.0); %Lymphocytes 12.5 % (21.0-51.0); %Monocytes 11.4 % (0.0-10.0); %Neutrophils 68.8 % (42.0-75.0); Hemoglobin 10.1 g/dL (14.0-18.0); Mean Corpuscular HGB CONC 33.1 g/dL (32.0-36.0); Mean Corpuscular Hemoglobin 30.1 pg (27.0-31.0); Mean Corpuscular Volume 91.1 fl (78.0-98.0); Mean Platelet Volume 7.3 fL (7.4-10.4); Platelet Count 246 10x3/uL (130-400); RBC Distribution Width 14.6 % (11.5-14.5); Red Blood Cell (RBC) Count 3.34 mill/uL (4.70-6.10); White Blood Cell (WBC) Count 8.6 10x3/uL (4.8-10.8)
[2022-10-03 15:52] LABS: Actual Bicarbonate (HCO3v) 22 mEq/L (22-28); Analyzer IN Cardio ER; Base Excess -3.7 mEq/L (-2.0 to +3.0); Calcium, Ionized (venous) 1.13 mmol/L (1.16-1.32); Chloride (VBG) 103 mmol/L (98-106); Hemoglobin (Hb) 18.6 g/dL (12.6-17.4); Potassium (VBG) 4.57 mmol/L (3.70-5.30); Sodium 137.4 mmol/L (133-146); pH (venous) 7.35 (7.32-7.43)
[2022-10-03 16:05] LABS: ALT (SGPT) 27 U/L (8-55); AST (SGOT) 20 U/L (5-34); Albumin 3.7 g/dL (3.4-4.8); Alkaline Phosphatase 134 U/L (40-110); Anion Gap 13 mmol/L (10-20); BUN (Urea Nitrogen) 11 mg/dL (8.4-25.7); Bilirubin, Total 0.5 mg/dL (0.2-1.2); CK (CPK) 44 U/L (30-200); Calc. Creatinine Clearance 0 mL/min (70-130); Calcium 8.5 mg/dL (7.8-10.44); Carbon Dioxide 19 mmol/L (23-31); Chloride 106 mmol/L (98-107); Estimated GFR 88; Globulin 3.6 g/dL (2.4-3.5); Glucose 107 mg/dL (83-110); Potassium 4.4 mmol/L (3.5-5.1); Protein, Total 7.3 g/dL (5.8-8.1); Sodium 134 mmol/L (136-145)
[2022-10-03 17:01] LABS: Bacteria/HPF None Seen HPF (None Seen); Bilirubin Negative (Negative); Blood, Urine Trace (Negative); Clarity Clear (Clear); Glucose, Urine (Dipstick) Normal (Negative); Ketone, Urine Negative (Negative); Leukocyte Negative Leu/uL (Negative); Nitrite Negative (Negative); Protein, Urine (Dipstick) 10 mg/dL (Neg-Trace); RBC/HPF 0-3 HPF (0-3); Squamous Epithelial None Seen HPF (0-3); Urobilinogen Normal mg/dL (Less than 2); WBC/HPF 0-3 HPF (0-3)
[2022-10-03] MEDS ORDERED: Nitroglycerin 2% Ointment 1 INCH/1 GM Packet ONE (17:36)
[2022-10-03] MEDS ORDERED: Morphine 4 MG/ML VIAL ONE (17:36)
[2022-10-03] MEDS ORDERED: Furosemide 40 MG/4 ML VIAL ONE (17:36)
[2022-10-03] MEDS ORDERED: Aspirin Chewable 81 MG TAB ONE (17:37)
[2022-10-03] MEDS ORDERED: hydrALAZINE 20 MG/ML VIAL ONE (18:13)
[2022-10-03] MEDS ORDERED: Acetaminophen 325 MG TAB PO PRN (19:11)
[2022-10-03 19:20] LABS: Troponin I 0.026 ng/mL (< 0.028)
[2022-10-03] MEDS ORDERED: hydrALAZINE 20 MG/ML VIAL SLOW IVP PRN (21:04)
[2022-10-03 21:33] LABS: Hemoglobin A1c 5.4 % (4.0-6.0)
[2022-10-03 21:56] LABS: Magnesium 1.4 mg/dL (1.6-2.6)
[2022-10-03] MEDS ORDERED: Gabapentin 300 MG CAP PO SCH (22:15)
[2022-10-03 23:25] VITALS: BMI 26.1
[2022-10-04] MEDS ORDERED: Magnesium 2 GM/50 ML(in water) 2 GM in Premix Bag 1 BAG IVPB SCH ×2 (00:30→10:15)
[2022-10-04] MEDS ORDERED: hydrOXYzine 25 MG TAB PO PRN (01:31)
[2022-10-04 04:58] LABS: #Eosinphils 0.5 thou/uL (0.0-0.7); #Lymphocytes 0.8 thou/uL (1.20-3.40); #Monocytes 0.8 thou/uL (0.11-0.59); #Neutrophils 4.2 thou/uL (1.40-6.50); %Basophils 0.3 % (0.0-1.0); %Eosinophils 7.8 % (0.0-10.0); %Lymphocytes 13.4 % (21.0-51.0); %Monocytes 12.1 % (0.0-10.0); %Neutrophils 66.4 % (42.0-75.0); Hemoglobin 8.9 g/dL (14.0-18.0); Mean Corpuscular HGB CONC 32.4 g/dL (32.0-36.0); Mean Corpuscular Hemoglobin 29.7 pg (27.0-31.0); Mean Corpuscular Volume 91.6 fl (78.0-98.0); Mean Platelet Volume 7.3 fL (7.4-10.4); Platelet Count 235 10x3/uL (130-400); RBC Distribution Width 14.4 % (11.5-14.5); White Blood Cell (WBC) Count 6.3 10x3/uL (4.8-10.8)
[2022-10-04 05:20] LABS: Anion Gap 12 mmol/L (10-20); BUN (Urea Nitrogen) 12 mg/dL (8.4-25.7); Calc. Creatinine Clearance 78 mL/min (70-130); Calcium 8.3 mg/dL (7.8-10.44); Carbon Dioxide 24 mmol/L (23-31); Chloride 103 mmol/L (98-107); Estimated GFR 89; Glucose 83 mg/dL (83-110); Magnesium 1.9 mg/dL (1.6-2.6); Potassium 3.9 mmol/L (3.5-5.1); Sodium 135 mmol/L (136-145)
[2022-10-04] MEDS: Spironolactone 25 MG TAB PO SCH (08:38)
[2022-10-04] MEDS: Atorvastatin Calcium 20 MG TAB PO SCH (08:39)
[2022-10-04] MEDS: Gabapentin 300 MG CAP PO SCH ×3 (08:40→20:44)
[2022-10-04] MEDS: Fish Oil 1,000 MG CAP PO SCH (08:40)
[2022-10-04] MEDS: Carvedilol 6.25 MG TAB PO SCH ×2 (08:40→20:43)
[2022-10-04] MEDS: Famotidine 20 MG TAB PO SCH ×2 (08:40→20:45)
[2022-10-04] MEDS: Sertraline 100 MG TAB PO SCH (08:41)
[2022-10-04] MEDS ORDERED: Furosemide 40 MG in Sodium Chloride 0.9% 90 ML IVPB SCH (10:15)
[2022-10-04] MEDS ORDERED: Potassium Chloride 20 MEQ TAB PO SCH (10:15)
[2022-10-04] MEDS ORDERED: Furosemide 40 MG/4 ML VIAL SLOW IVP SCH (10:30)
[2022-10-04] MEDS ORDERED: Lorazepam 2 MG/ML VIAL IM PRN (12:59)
[2022-10-04] MEDS ORDERED: Ondansetron ODT 4 MG TAB PO PRN (12:59)
[2022-10-04] MEDS ORDERED: Multivit, Therapeutic 1 TAB PO SCH (13:15)
[2022-10-04] MEDS ORDERED: Furosemide 40 MG TAB PO SCH (18:30)
[2022-10-04] MEDS: Amlodipine 10 MG TAB PO SCH (20:44)
[2022-10-04] MEDS: Sacubitril 49 MG/Valsartan 51 MG TABLET PO SCH (20:44)
[2022-10-05 04:47] LABS: #Eosinphils 0.5 thou/uL (0.0-0.7); #Lymphocytes 0.8 thou/uL (1.20-3.40); #Monocytes 0.8 thou/uL (0.11-0.59); #Neutrophils 3.9 thou/uL (1.40-6.50); %Basophils 0.3 % (0.0-1.0); %Eosinophils 7.6 % (0.0-10.0); %Lymphocytes 12.6 % (21.0-51.0); %Monocytes 13.8 % (0.0-10.0); %Neutrophils 65.8 % (42.0-75.0); Hemoglobin 10.1 g/dL (14.0-18.0); Mean Corpuscular HGB CONC 33.6 g/dL (32.0-36.0); Mean Corpuscular Hemoglobin 30.6 pg (27.0-31.0); Mean Corpuscular Volume 91.1 fl (78.0-98.0); Mean Platelet Volume 7.4 fL (7.4-10.4); Platelet Count 223 10x3/uL (130-400); RBC Distribution Width 14.2 % (11.5-14.5); Red Blood Cell (RBC) Count 3.31 mill/uL (4.70-6.10)
[2022-10-05 05:06] LABS: Anion Gap 14 mmol/L (10-20); BUN (Urea Nitrogen) 13 mg/dL (8.4-25.7); Calc. Creatinine Clearance 72 mL/min (70-130); Calcium 8.6 mg/dL (7.8-10.44); Carbon Dioxide 28 mmol/L (23-31); Chloride 97 mmol/L (98-107); Estimated GFR 87; Glucose 104 mg/dL (83-110); Magnesium 1.8 mg/dL (1.6-2.6); Potassium 3.7 mmol/L (3.5-5.1); Sodium 135 mmol/L (136-145)
[2022-10-05] MEDS: Spironolactone 25 MG TAB PO SCH (07:59)
[2022-10-05] MEDS: Fish Oil 1,000 MG CAP PO SCH (07:59)
[2022-10-05] MEDS: Carvedilol 6.25 MG TAB PO SCH ×2 (08:00→20:04)
[2022-10-05] MEDS: Atorvastatin Calcium 20 MG TAB PO SCH (08:00)
[2022-10-05] MEDS: Famotidine 20 MG TAB PO SCH ×2 (08:00→20:04)
[2022-10-05] MEDS: Gabapentin 300 MG CAP PO SCH ×3 (08:01→20:05)
[2022-10-05] MEDS: Furosemide 40 MG TAB PO SCH ×2 (08:01→14:56)
[2022-10-05] MEDS: Sacubitril 49 MG/Valsartan 51 MG TABLET PO SCH ×2 (08:01→20:05)
[2022-10-05] MEDS: Sertraline 100 MG TAB PO SCH (08:01)
[2022-10-05] MEDS: Multivit, Therapeutic 1 TAB PO SCH (08:01)
[2022-10-05] MEDS: Aquaphor 10 GM TUBE TOP SCH (09:28)
[2022-10-05] MEDS: Amlodipine 10 MG TAB PO SCH (20:03)
[2022-10-06 05:34] LABS: #Eosinphils 0.7 thou/uL (0.0-0.7); #Lymphocytes 0.8 thou/uL (1.20-3.40); #Monocytes 0.7 thou/uL (0.11-0.59); #Neutrophils 3.5 thou/uL (1.40-6.50); %Basophils 0.4 % (0.0-1.0); %Eosinophils 12.2 % (0.0-10.0); %Lymphocytes 13.3 % (21.0-51.0); %Monocytes 11.8 % (0.0-10.0); %Neutrophils 62.4 % (42.0-75.0); Hemoglobin 10.1 g/dL (14.0-18.0); Mean Corpuscular HGB CONC 33.4 g/dL (32.0-36.0); Mean Corpuscular Hemoglobin 30.3 pg (27.0-31.0); Mean Corpuscular Volume 90.7 fl (78.0-98.0); Mean Platelet Volume 7.4 fL (7.4-10.4); Platelet Count 217 10x3/uL (130-400); RBC Distribution Width 14.1 % (11.5-14.5); Red Blood Cell (RBC) Count 3.34 mill/uL (4.70-6.10); White Blood Cell (WBC) Count 5.7 10x3/uL (4.8-10.8)
[2022-10-06 05:47] LABS: Anion Gap 12 mmol/L (10-20); BUN (Urea Nitrogen) 15 mg/dL (8.4-25.7); Calc. Creatinine Clearance 77 mL/min (70-130); Calcium 8.1 mg/dL (7.8-10.44); Carbon Dioxide 25 mmol/L (23-31); Chloride 100 mmol/L (98-107); Estimated GFR 89; Glucose 138 mg/dL (83-110); Magnesium 1.5 mg/dL (1.6-2.6); Potassium 3.6 mmol/L (3.5-5.1); Sodium 133 mmol/L (136-145)
[2022-10-06] MEDS: Spironolactone 25 MG TAB PO SCH (08:54)
[2022-10-06] MEDS: Atorvastatin Calcium 20 MG TAB PO SCH (08:54)
[2022-10-06] MEDS: Gabapentin 300 MG CAP PO SCH ×3 (08:54→21:21)
[2022-10-06] MEDS: Furosemide 40 MG TAB PO SCH ×2 (08:55→13:24)
[2022-10-06] MEDS: Aquaphor 10 GM TUBE TOP SCH (08:55)
[2022-10-06] MEDS: Famotidine 20 MG TAB PO SCH ×2 (08:55→21:21)
[2022-10-06] MEDS: Fish Oil 1,000 MG CAP PO SCH (08:55)
[2022-10-06] MEDS: Sacubitril 49 MG/Valsartan 51 MG TABLET PO SCH ×2 (08:55→21:22)
[2022-10-06] MEDS: Carvedilol 6.25 MG TAB PO SCH ×2 (08:55→21:20)
[2022-10-06] MEDS: Multivit, Therapeutic 1 TAB PO SCH (08:55)
[2022-10-06] MEDS: Sertraline 100 MG TAB PO SCH (08:55)
[2022-10-06] MEDS ORDERED: Potassium Chloride 20 MEQ TAB PO SCH (12:15)
[2022-10-06] MEDS ORDERED: Calcium Carbonate 500 MG ChewTAB PO PRN (16:19)
[2022-10-06] MEDS ORDERED: Latanoprost 0.005% Ophth Soln 2.5 ml Bottle R EYE SCH (21:00)
[2022-10-06] MEDS: Amlodipine 10 MG TAB PO SCH (21:21)
[2022-10-06] MEDS: Magnesium Oxide 400 MG TAB PO SCH (21:22)
[2022-10-06] MEDS: DorzolamidE/Timolol 2%/0.5% Ophth Soln 10 ml Bottle R EYE SCH (21:26)
[2022-10-06] MEDS: Brimonidine Tartrate 0.2% Ophth Soln 5 ml Bottle R EYE SCH (21:27)
[2022-10-07 05:02] LABS: #Basophils 0.1 thou/uL (0.0-0.2); #Lymphocytes 0.9 thou/uL (1.20-3.40); #Monocytes 0.6 thou/uL (0.11-0.59); #Neutrophils 3.4 thou/uL (1.40-6.50); %Eosinophils 16.3 % (0.0-10.0); %Lymphocytes 15.5 % (21.0-51.0); %Monocytes 10.5 % (0.0-10.0); %Neutrophils 56.7 % (42.0-75.0); Hemoglobin 12.6 g/dL (14.0-18.0); Mean Corpuscular HGB CONC 32.9 g/dL (32.0-36.0); Mean Corpuscular Hemoglobin 30.1 pg (27.0-31.0); Mean Corpuscular Volume 91.6 fl (78.0-98.0); Mean Platelet Volume 7.5 fL (7.4-10.4); Platelet Count 292 10x3/uL (130-400); RBC Distribution Width 14.2 % (11.5-14.5); Red Blood Cell (RBC) Count 4.19 mill/uL (4.70-6.10); White Blood Cell (WBC) Count 6.1 10x3/uL (4.8-10.8)
[2022-10-07] MEDS: Brimonidine Tartrate 0.2% Ophth Soln 5 ml Bottle R EYE SCH ×2 (05:39→12:56)
[2022-10-07] MEDS: Spironolactone 25 MG TAB PO SCH (08:21)
[2022-10-07] MEDS: Atorvastatin Calcium 20 MG TAB PO SCH (08:21)
[2022-10-07] MEDS: Fish Oil 1,000 MG CAP PO SCH (08:21)
[2022-10-07] MEDS: Famotidine 20 MG TAB PO SCH (08:21)
[2022-10-07] MEDS: Gabapentin 300 MG CAP PO SCH ×2 (08:22→14:14)
[2022-10-07] MEDS: Furosemide 40 MG TAB PO SCH ×2 (08:22→12:57)
[2022-10-07] MEDS: Magnesium Oxide 400 MG TAB PO SCH (08:22)
[2022-10-07] MEDS: Multivit, Therapeutic 1 TAB PO SCH (08:22)
[2022-10-07] MEDS: Sertraline 100 MG TAB PO SCH (08:22)
[2022-10-07] MEDS: Sacubitril 49 MG/Valsartan 51 MG TABLET PO SCH (08:22)
[2022-10-07] MEDS: Carvedilol 6.25 MG TAB PO SCH ×2 (08:41→08:42)
[2022-10-07] MEDS: DorzolamidE/Timolol 2%/0.5% Ophth Soln 10 ml Bottle R EYE SCH (09:24)
[2022-10-07] MEDS: Aquaphor 10 GM TUBE TOP SCH (11:04)
[2022-10-07 12:16] LABS: Chloride 102 mmol/L (98-107); Potassium 4.7 mmol/L (3.5-5.1); Sodium 137 mmol/L (136-145)
[2022-10-07 12:17] LABS: Calcium 9.6 mg/dL (7.8-10.44); Glucose 109 mg/dL (83-110)
[2022-10-07 12:19] LABS: Anion Gap 21 mmol/L (10-20); Carbon Dioxide 19 mmol/L (23-31)
[2022-10-07 12:21] LABS: Calc. Creatinine Clearance 58 mL/min (70-130); Estimated GFR 77
[2022-10-07 12:22] LABS: BUN (Urea Nitrogen) 22 mg/dL (8.4-25.7)
[2022-10-07 16:08] VITALS: TEMP 97.2
[2022-10-07 16:32] VITALS: BP 126/62
== END 2022-10-07 17:35 | disposition home health service (06) | DRG 291 ==
LOC: ERS 13:08 → 2NO 18:10
PROVIDERS: ADMIT Family Medicine; ATTEND Family Medicine
DX: I11.0 Hypertensive heart disease with heart failure (principal); I50.23 Acute on chronic systolic (congestive) heart failure; I16.1 Hypertensive emergency; E11.42 Type 2 diabetes mellitus with diabetic polyneuropathy; F41.9 Anxiety disorder, unspecified; F17.210 Nicotine dependence, cigarettes, uncomplicated; I87.2 Venous insufficiency (chronic) (peripheral); Z79.84 Long term (current) use of oral hypoglycemic drugs; Z79.899 Other long term (current) drug therapy; Z98.890 Other specified postprocedural states; Z90.49 Acquired absence of other specified parts of digestive tract
CPT/HCPCS: 36415; 36416; 71045; 80048; 80053; 81003; 81015; 82010; 82550; 82805; 83036; 83735; 83880; 84484; 85025; 93005; 96374; 96375; 97139; J0360; J1650; J1940; J2270; J3475

== ENCOUNTER 2023-11-25 17:39 | Inpatient (IN) | payer OTHER ==
[2023-11-25 18:23] LABS: #Basophils 0.05 10x3/uL (0.0-0.2); %Basophils 1.1 % (0.0-1.0); %Eosinophils 5.8 % (0.0-10.0); %Lymphocytes 22.6 % (21.0-51.0); %Monocytes 9.2 % (0.0-10.0); %Neutrophils 60.9 % (42.0-75.0); Hematocrit 33.2 % (42.0-52.0); Hemoglobin 11.8 g/dL (14.0-18.0); Mean Corpuscular HGB CONC 35.5 g/dL (32.0-36.0); Mean Corpuscular Hemoglobin 30.7 pg (27.0-31.0); Mean Corpuscular Volume 86.5 fL (78.0-98.0); Mean Platelet Volume 10.2 fL (7.4-10.4); Platelet Count 192 10x3/uL (130-400); RBC Distribution Width 12.9 % (11.5-14.5); Red Blood Cell (RBC) Count 3.84 mill/uL (4.70-6.10)
[2023-11-25 18:46] LABS: ALT (SGPT) 12 U/L (8-55); AST (SGOT) 11 U/L (5-34); Albumin 3.7 g/dL (3.4-4.8); Alkaline Phosphatase 95 U/L (40-110); Anion Gap 16 mmol/L (10-20); BUN (Urea Nitrogen) 34 mg/dL (8.4-25.7); Bilirubin, Total 0.5 mg/dL (0.2-1.2); Calc. Creatinine Clearance 0 mL/min (70-130); Calcium 9.2 mg/dL (7.8-10.44); Carbon Dioxide 23 mmol/L (23-31); Chloride 100 mmol/L (98-107); Estimated GFR 40; Globulin 4.2 g/dL (2.4-3.5); Glucose 374 mg/dL (83-110); Lipase 40 U/L (8-78); Potassium 4.7 mmol/L (3.5-5.1); Protein, Total 7.9 g/dL (5.8-8.1); Sodium 134 mmol/L (136-145)
[2023-11-25 18:52] LABS: Troponin I 0.018 ng/mL (< 0.028)
[2023-11-25] MEDS ORDERED: Acetaminophen 500 MG TAB ONE (19:44)
[2023-11-26] MEDS: Lidocaine 2% Viscous 10 mL, Alum & Magn 30 mL SSW SCH (00:57)
[2023-11-26 07:53] LABS: Troponin I 0.017 ng/mL (< 0.028)
[2023-11-26] MEDS ORDERED: Ondansetron PF 4 MG/2 ML Vial IVP PRN (08:17)
[2023-11-26] MEDS ORDERED: Acetaminophen 325 MG TAB PO PRN (08:17)
[2023-11-26 13:06] LABS: Troponin I 0.022 ng/mL (< 0.028)
[2023-11-26] MEDS ORDERED: Ondansetron PF 4 MG/2 ML Vial SLOW IVP PRN (15:00)
[2023-11-26 15:18] VITALS: BMI 26.9
[2023-11-26] MEDS: Sodium Chloride 0.9% 1,000 ML IV SCH (16:13)
[2023-11-26] MEDS: hydrALAZINE 20 MG/ML VIAL SLOW IVP SCH (16:15)
[2023-11-26] MEDS ORDERED: Glucagon 1 MG/ML KIT IM PRN (18:55)
[2023-11-26] MEDS ORDERED: Dextrose 5% in Water 1,000 ML IV PRN (18:55)
[2023-11-26] MEDS ORDERED: Dextrose 50% Abboject 50 ML SYRINGE SLOW IVP PRN (18:55)
[2023-11-26] MEDS ORDERED: Metoprolol Tartrate 25 MG TAB PO SCH (21:00)
[2023-11-26] MEDS: Famotidine 20 MG TAB PO SCH (21:10)
[2023-11-26] MEDS: HumaLOG 300 UNITS/3 ML VIAL SC PRN (21:10)
[2023-11-26] MEDS: Insulin Glargine 30 UNITS/0.3 ML VIAL SC SCH (21:10)
[2023-11-27] MEDS: Calcium Carbonate 500 MG ChewTAB PO SCH (04:20)
[2023-11-27 04:38] LABS: #Basophils 0.03 10x3/uL (0.0-0.2); %Basophils 0.8 % (0.0-1.0); %Eosinophils 6.3 % (0.0-10.0); %Lymphocytes 24.5 % (21.0-51.0); %Monocytes 13.8 % (0.0-10.0); Hematocrit 30.1 % (42.0-52.0); Hemoglobin 10.4 g/dL (14.0-18.0); Mean Corpuscular HGB CONC 34.6 g/dL (32.0-36.0); Mean Corpuscular Hemoglobin 30.3 pg (27.0-31.0); Mean Corpuscular Volume 87.8 fL (78.0-98.0); Mean Platelet Volume 10.2 fL (7.4-10.4); Platelet Count 153 10x3/uL (130-400); Red Blood Cell (RBC) Count 3.43 mill/uL (4.70-6.10)
[2023-11-27 04:59] LABS: Anion Gap 14 mmol/L (10-20); BUN (Urea Nitrogen) 20 mg/dL (8.4-25.7); Calc. Creatinine Clearance 58 mL/min (70-130); Calcium 8.9 mg/dL (7.8-10.44); Carbon Dioxide 22 mmol/L (23-31); Chloride 107 mmol/L (98-107); Estimated GFR 67; Glucose 161 mg/dL (83-110); Sodium 139 mmol/L (136-145)
[2023-11-27 09:53] VITALS: TEMP 97.6
[2023-11-27] MEDS: Amlodipine 10 MG TAB PO SCH (09:54)
[2023-11-27] MEDS: Isosorbide Mononitrate 60 MG ER.TAB PO SCH (09:54)
[2023-11-27 11:33] VITALS: BP 112/58
[2023-11-27] MEDS: Acetaminophen 325 MG TAB PO PRN (15:03)
[2023-11-27] MEDS: Mag-Al 1200 mg/1200 mg/30 ML UDCUP PO PRN (15:03)
[2023-11-27] MEDS ORDERED: Atorvastatin Calcium 40 MG TAB PO SCH (21:00)
== END 2023-11-27 17:09 | disposition home or self-care (01) | DRG 313 ==
LOC: ERS 17:39 → ERHOLD 23:12 → 2NO 11-26 14:41 → OBSVTOIN 11-26 15:55
PROVIDERS: ADMIT Internal Medicine; ATTEND Internal Medicine
DX: R07.89 Other chest pain (principal); N17.9 Acute kidney failure, unspecified; I42.9 Cardiomyopathy, unspecified; I25.10 Atherosclerotic heart disease of native coronary artery without angina pectoris; I10 Essential (primary) hypertension; I50.9 Heart failure, unspecified; E11.51 Type 2 diabetes mellitus with diabetic peripheral angiopathy without gangrene; E78.5 Hyperlipidemia, unspecified; F17.210 Nicotine dependence, cigarettes, uncomplicated; I44.7 Left bundle-branch block, unspecified; Z79.4 Long term (current) use of insulin; Z91.199 Patient's noncompliance with other medical treatment and regimen due to unspecified reason; Z90.49 Acquired absence of other specified parts of digestive tract; Z98.890 Other specified postprocedural states
CPT/HCPCS: 36415; 36416; 71045; 78451; 80048; 80053; 83690; 83880; 84484; 85025; 93005; 93306; 94760; A9502; G0378; J0360; J1815; J7050

== ENCOUNTER 2024-01-24 17:02 | Inpatient (IN) | payer MEDICARE, OTHER ==
[2024-01-24 17:56] LABS: #Basophils Less than 0.03 10x3/uL (0.0-0.2); %Basophils 0.2 % (0.0-1.0); %Eosinophils 3.3 % (0.0-10.0); %Lymphocytes 21.5 % (21.0-51.0); %Neutrophils 65.8 % (42.0-75.0); Hematocrit 29.7 % (42.0-52.0); Hemoglobin 10.2 g/dL (14.0-18.0); Mean Corpuscular HGB CONC 34.3 g/dL (32.0-36.0); Mean Corpuscular Hemoglobin 29.7 pg (27.0-31.0); Mean Corpuscular Volume 86.6 fL (78.0-98.0); Mean Platelet Volume 9.8 fL (7.4-10.4); Platelet Count 224 10x3/uL (130-400); RBC Distribution Width 13.2 % (11.5-14.5); Red Blood Cell (RBC) Count 3.43 mill/uL (4.70-6.10)
[2024-01-24] MEDS ORDERED: Aspirin Chewable 81 MG TAB ONE (18:05)
[2024-01-24] MEDS ORDERED: Furosemide 40 MG (4 mL) VIAL ONE (18:05)
[2024-01-24 18:10] LABS: ALT (SGPT) 7 U/L (8-55); AST (SGOT) 13 U/L (5-34); Albumin 3.2 g/dL (3.4-4.8); Alkaline Phosphatase 74 U/L (40-110); Anion Gap 16 mmol/L (10-20); BUN (Urea Nitrogen) 20 mg/dL (8.4-25.7); Bilirubin, Total 0.7 mg/dL (0.2-1.2); Calc. Creatinine Clearance 0 mL/min (70-130); Calcium 8.9 mg/dL (7.8-10.44); Carbon Dioxide 20 mmol/L (23-31); Chloride 104 mmol/L (98-107); Estimated GFR 35; Globulin 3.8 g/dL (2.4-3.5); Glucose 212 mg/dL (83-110); Lipase 15 U/L (8-78); Magnesium 2.1 mg/dL (1.6-2.6); Potassium 4.9 mmol/L (3.5-5.1); Sodium 135 mmol/L (136-145)
[2024-01-24 18:15] LABS: Troponin I 0.132 ng/mL (< 0.028)
[2024-01-24] MEDS ORDERED: Enoxaparin 80 MG (0.8 mL) SYRINGE ONE (18:54)
[2024-01-24] MEDS ORDERED: Ondansetron PF 4 MG/2 ML Vial IVP PRN ×2 (21:15→21:43)
[2024-01-24] MEDS ORDERED: Ondansetron ODT 4 MG TAB SL PRN (21:15)
[2024-01-24] MEDS ORDERED: Acetaminophen 325 MG TAB PO PRN (21:15)
[2024-01-24] MEDS ORDERED: Glucagon 1 MG/ML KIT IM PRN (21:43)
[2024-01-24] MEDS ORDERED: Dextrose 5% in Water 1,000 ML IV PRN (21:43)
[2024-01-24] MEDS ORDERED: Insulin Lispro 100 UNIT/ML 10 ML VIAL SC PRN (21:43)
[2024-01-24] MEDS ORDERED: Dextrose 50% Abboject 50 ML SYRINGE SLOW IVP PRN (21:43)
[2024-01-24 22:10] LABS: Troponin I 0.128 ng/mL (< 0.028)
[2024-01-25 01:25] LABS: Troponin I 0.112 ng/mL (< 0.028)
[2024-01-25] MEDS ORDERED: Furosemide 40 MG (4 mL) VIAL ONE (05:17)
[2024-01-25] MEDS: Brimonidine Tartrate 0.2% Ophth Soln 5 ml Bottle R EYE SCH (05:29)
[2024-01-25] MEDS: Furosemide 40 MG (4 mL) VIAL SLOW IVP SCH (05:29)
[2024-01-25 06:00] LABS: #Basophils 0.06 10x3/uL (0.0-0.2); %Basophils 1.2 % (0.0-1.0); %Eosinophils 5.8 % (0.0-10.0); %Lymphocytes 33.2 % (21.0-51.0); %Monocytes 8.4 % (0.0-10.0); %Neutrophils 51.2 % (42.0-75.0); Hematocrit 32.6 % (42.0-52.0); Mean Corpuscular HGB CONC 33.7 g/dL (32.0-36.0); Mean Corpuscular Hemoglobin 29.7 pg (27.0-31.0); Mean Corpuscular Volume 88.1 fL (78.0-98.0); Mean Platelet Volume 9.7 fL (7.4-10.4); Platelet Count 252 10x3/uL (130-400); RBC Distribution Width 13.2 % (11.5-14.5)
[2024-01-25 06:15] LABS: Anion Gap 15 mmol/L (10-20); BUN (Urea Nitrogen) 20 mg/dL (8.4-25.7); Calc. Creatinine Clearance 0 mL/min (70-130); Carbon Dioxide 20 mmol/L (23-31); Chloride 104 mmol/L (98-107); Estimated GFR 35; Glucose 167 mg/dL (83-110); Potassium 4.4 mmol/L (3.5-5.1); Sodium 135 mmol/L (136-145)
[2024-01-25] MEDS ORDERED: Sacubitril 49 MG/Valsartan 51 MG TABLET ONE (08:33)
[2024-01-25] MEDS ORDERED: Carvedilol 6.25 MG TAB ONE (08:33)
[2024-01-25] MEDS ORDERED: Sucralfate 1 GM/10 ML UDCUP ONE (08:33)
[2024-01-25] MEDS ORDERED: Pantoprazole DR 40 MG TAB ONE (08:33)
[2024-01-25] MEDS ORDERED: Amiodarone 200 MG TAB ONE (08:33)
[2024-01-25] MEDS ORDERED: Clopidogrel Bisulfate 75 MG TAB ONE (08:33)
[2024-01-25] MEDS ORDERED: Aspirin 81 mg Enteric Coated Tablet ONE (08:33)
[2024-01-25] MEDS ORDERED: Apixaban 5 MG TAB ONE (08:34)
[2024-01-25] MEDS: Sacubitril 49 MG/Valsartan 51 MG TABLET PO SCH (08:37)
[2024-01-25] MEDS: Sucralfate 1 GM/10 ML UDCUP PO SCH (08:37)
[2024-01-25] MEDS: Aspirin 81 mg Enteric Coated Tablet PO SCH (08:37)
[2024-01-25] MEDS: Carvedilol 6.25 MG TAB PO SCH (08:37)
[2024-01-25] MEDS: Pantoprazole DR 40 MG TAB PO SCH (08:37)
[2024-01-25] MEDS: Clopidogrel Bisulfate 75 MG TAB PO SCH (08:38)
[2024-01-25] MEDS: Apixaban 5 MG TAB PO SCH (08:38)
[2024-01-25] MEDS: Amiodarone 200 MG TAB PO SCH (08:46)
[2024-01-25] MEDS: DorzolamidE/Timolol 2%/0.5% Ophth Soln 10 ml Bottle R EYE SCH (09:24)
[2024-01-25] MEDS: Spironolactone 25 MG TAB PO SCH (09:24)
[2024-01-25] MEDS: metFORMIN 500 MG TAB PO SCH (09:26)
[2024-01-25] MEDS: Cyanocobalamin (Vitamin B-12) 1,000 MCG TAB PO SCH (09:27)
[2024-01-25 12:32] VITALS: BMI 25.2
[2024-01-25] MEDS: Insulin Lispro 100 UNIT/ML 10 ML VIAL SC PRN (17:46)
[2024-01-25] MEDS: Latanoprost 0.005% Ophth Soln 2.5 ml Bottle R EYE SCH (20:38)
[2024-01-25] MEDS: hydrOXYzine 25 MG TAB PO PRN (22:07)
[2024-01-26 10:03] LABS: #Basophils Less than 0.03 10x3/uL (0.0-0.2); %Basophils 0.3 % (0.0-1.0); %Eosinophils 2.1 % (0.0-10.0); %Lymphocytes 17.2 % (21.0-51.0); %Monocytes 11.4 % (0.0-10.0); %Neutrophils 68.6 % (42.0-75.0); Hematocrit 32.3 % (42.0-52.0); Hemoglobin 10.9 g/dL (14.0-18.0); Mean Corpuscular HGB CONC 33.7 g/dL (32.0-36.0); Mean Corpuscular Hemoglobin 29.8 pg (27.0-31.0); Mean Corpuscular Volume 88.3 fL (78.0-98.0); Mean Platelet Volume 9.7 fL (7.4-10.4); Platelet Count 211 10x3/uL (130-400); RBC Distribution Width 13.3 % (11.5-14.5); Red Blood Cell (RBC) Count 3.66 mill/uL (4.70-6.10)
[2024-01-26 10:25] LABS: Anion Gap 15 mmol/L (10-20); BUN (Urea Nitrogen) 23 mg/dL (8.4-25.7); Calc. Creatinine Clearance 32 mL/min (70-130); Calcium 9.2 mg/dL (7.8-10.44); Carbon Dioxide 21 mmol/L (23-31); Chloride 101 mmol/L (98-107); Estimated GFR 36; Glucose 130 mg/dL (83-110); Potassium 4.3 mmol/L (3.5-5.1); Sodium 133 mmol/L (136-145)
[2024-01-26] MEDS: DOBUTamine 500 mg/250 ml 250 ML IVPB SCH (17:10)
[2024-01-26] MEDS: Acetaminophen 325 MG TAB PO PRN (20:03)
[2024-01-27 05:00] LABS: #Basophils Less than 0.03 10x3/uL (0.0-0.2); %Basophils 0.5 % (0.0-1.0); %Eosinophils 3.7 % (0.0-10.0); %Lymphocytes 26.2 % (21.0-51.0); %Monocytes 10.3 % (0.0-10.0); %Neutrophils 58.8 % (42.0-75.0); Hematocrit 28.1 % (42.0-52.0); Hemoglobin 9.6 g/dL (14.0-18.0); Mean Corpuscular HGB CONC 34.2 g/dL (32.0-36.0); Mean Corpuscular Hemoglobin 30.4 pg (27.0-31.0); Mean Corpuscular Volume 88.9 fL (78.0-98.0); Platelet Count 173 10x3/uL (130-400); RBC Distribution Width 13.3 % (11.5-14.5); Red Blood Cell (RBC) Count 3.16 mill/uL (4.70-6.10)
[2024-01-27 05:24] LABS: Anion Gap 12 mmol/L (10-20); BUN (Urea Nitrogen) 25 mg/dL (8.4-25.7); Calc. Creatinine Clearance 37 mL/min (70-130); Calcium 8.4 mg/dL (7.8-10.44); Carbon Dioxide 21 mmol/L (23-31); Chloride 106 mmol/L (98-107); Estimated GFR 41; Glucose 120 mg/dL (83-110); Potassium 3.6 mmol/L (3.5-5.1); Sodium 135 mmol/L (136-145)
[2024-01-27] MEDS: Furosemide 20 MG TAB PO SCH (10:05)
[2024-01-27] MEDS ORDERED: Ipratropium/Albuterol 3 ML NEB NEB PRN (11:59)
[2024-01-27] MEDS: Fluticasone Propionate Nasal Spray 16 gm Bottle NASAL SCH ×2 (14:54→14:58)
[2024-01-27 15:53] LABS: SARS-CoV-2 E Target Negative; SARS-CoV-2 N2 Target Negative; SARS-CoV-2 NAA Rapid Test Not Detected (NotDetected); SARS-CoV-2 RdRP gene Negative
[2024-01-27] MEDS ORDERED: Apixaban 2.5 MG TAB PO SCH (21:00)
[2024-01-27] MEDS: Sacubitril 49 MG/Valsartan 51 MG TABLET PO SCH (21:02)
[2024-01-28 05:28] LABS: #Basophils Less than 0.03 10x3/uL (0.0-0.2); %Basophils 0.2 % (0.0-1.0); %Lymphocytes 13.8 % (21.0-51.0); %Monocytes 9.4 % (0.0-10.0); Hematocrit 30.5 % (42.0-52.0); Hemoglobin 10.4 g/dL (14.0-18.0); Mean Corpuscular HGB CONC 34.1 g/dL (32.0-36.0); Mean Corpuscular Hemoglobin 30.1 pg (27.0-31.0); Mean Corpuscular Volume 88.2 fL (78.0-98.0); Platelet Count 180 10x3/uL (130-400); RBC Distribution Width 13.2 % (11.5-14.5); Red Blood Cell (RBC) Count 3.46 mill/uL (4.70-6.10)
[2024-01-28 05:40] LABS: Anion Gap 14 mmol/L (10-20); BUN (Urea Nitrogen) 18 mg/dL (8.4-25.7); Calc. Creatinine Clearance 42 mL/min (70-130); Calcium 8.9 mg/dL (7.8-10.44); Carbon Dioxide 21 mmol/L (23-31); Cardiac Risk 5.8 (Less than 4.5); Chloride 103 mmol/L (98-107); Cholesterol 145 mg/dl (< 200 Desired); Estimated GFR 50; Glucose 142 mg/dL (83-110); HDL Cholesterol 25 mg/dL (>60 Neg Risk); LDL Cholesterol, Calculated 92 mg/dL; Potassium 3.7 mmol/L (3.5-5.1); Sodium 134 mmol/L (136-145); Triglycerides 139 mg/dL (Less than 150)
[2024-01-28] MEDS: Furosemide 20 MG TAB PO SCH ×2 (10:29→14:30)
[2024-01-28] MEDS: DOBUTamine 500 mg/250 ml 250 ML IVPB SCH (16:35)
[2024-01-28] MEDS: Atorvastatin Calcium 40 MG TAB PO SCH (20:31)
[2024-01-28] MEDS: Enoxaparin 40 MG (0.4 mL) SYRINGE SC SCH (20:34)
[2024-01-28] MEDS ORDERED: Apixaban 2.5 MG TAB PO SCH (21:00)
[2024-01-28] MEDS: Carvedilol 3.125 MG TAB PO SCH (22:00)
[2024-01-29] MEDS: Albumin 25% 25 GM (100 mL) BOT IVPB SCH (00:33)
[2024-01-29 05:33] LABS: Hemoglobin A1c 7.6 % (4.0-6.0)
[2024-01-29] MEDS: Clopidogrel Bisulfate 75 MG TAB PO SCH (10:14)
[2024-01-29] MEDS: Apixaban 5 MG TAB PO SCH (21:13)
[2024-01-29] MEDS: DOBUTamine 500 mg/250 ml 250 ML IVPB SCH (21:15)
[2024-01-30 05:44] LABS: #Basophils Less than 0.03 10x3/uL (0.0-0.2); %Basophils 0.5 % (0.0-1.0); %Eosinophils 5.1 % (0.0-10.0); %Lymphocytes 14.6 % (21.0-51.0); %Monocytes 11.1 % (0.0-10.0); %Neutrophils 68.5 % (42.0-75.0); Hematocrit 29.6 % (42.0-52.0); Hemoglobin 10.2 g/dL (14.0-18.0); Mean Corpuscular HGB CONC 34.5 g/dL (32.0-36.0); Mean Corpuscular Hemoglobin 29.5 pg (27.0-31.0); Mean Corpuscular Volume 85.5 fL (78.0-98.0); Platelet Count 205 10x3/uL (130-400); RBC Distribution Width 13.2 % (11.5-14.5); Red Blood Cell (RBC) Count 3.46 mill/uL (4.70-6.10)
[2024-01-30 05:55] LABS: Anion Gap 13 mmol/L (10-20); BUN (Urea Nitrogen) 17 mg/dL (8.4-25.7); Calc. Creatinine Clearance 40 mL/min (70-130); Calcium 8.7 mg/dL (7.8-10.44); Carbon Dioxide 20 mmol/L (23-31); Chloride 103 mmol/L (98-107); Estimated GFR 50; Glucose 123 mg/dL (83-110); Potassium 3.6 mmol/L (3.5-5.1); Sodium 132 mmol/L (136-145)
[2024-01-30] MEDS: Sacubitril 24MG/Valsartan 26 MG TAB PO SCH (08:27)
[2024-01-30] MEDS: Carvedilol 3.125 MG TAB PO SCH (08:28)
[2024-01-30 16:34] VITALS: BMI 23.8
[2024-01-31] MEDS: DOBUTamine 500 mg/250 ml 250 ML IVPB SCH (01:14)
[2024-01-31 04:45] LABS: #Basophils Less than 0.03 10x3/uL (0.0-0.2); %Basophils 0.4 % (0.0-1.0); %Eosinophils 6.3 % (0.0-10.0); %Lymphocytes 15.7 % (21.0-51.0); %Monocytes 11.1 % (0.0-10.0); %Neutrophils 66.1 % (42.0-75.0); Hematocrit 30.6 % (42.0-52.0); Hemoglobin 10.4 g/dL (14.0-18.0); Mean Corpuscular Hemoglobin 29.7 pg (27.0-31.0); Mean Corpuscular Volume 87.4 fL (78.0-98.0); Mean Platelet Volume 9.6 fL (7.4-10.4); Platelet Count 213 10x3/uL (130-400); RBC Distribution Width 13.2 % (11.5-14.5)
[2024-01-31 04:58] LABS: Anion Gap 13 mmol/L (10-20); BUN (Urea Nitrogen) 23 mg/dL (8.4-25.7); Calc. Creatinine Clearance 37 mL/min (70-130); Calcium 8.8 mg/dL (7.8-10.44); Carbon Dioxide 21 mmol/L (23-31); Chloride 102 mmol/L (98-107); Estimated GFR 45; Glucose 126 mg/dL (83-110); Potassium 3.6 mmol/L (3.5-5.1); Sodium 132 mmol/L (136-145)
[2024-01-31] MEDS: Apixaban 2.5 MG TAB PO SCH (20:52)
[2024-02-01 07:56] LABS: Anion Gap 15 mmol/L (10-20); BUN (Urea Nitrogen) 31 mg/dL (8.4-25.7); Calc. Creatinine Clearance 34 mL/min (70-130); Calcium 8.9 mg/dL (7.8-10.44); Carbon Dioxide 22 mmol/L (23-31); Chloride 99 mmol/L (98-107); Estimated GFR 39; Glucose 139 mg/dL (83-110); Potassium 3.7 mmol/L (3.5-5.1); Sodium 132 mmol/L (136-145)
[2024-02-01] MEDS: Spironolactone 25 MG TAB PO SCH (09:15)
[2024-02-01] MEDS: Guaifenesin DM 100-10/5 ML UDCUP PO PRN (10:40)
[2024-02-01 12:30] LABS: HBsAg Index 0.64 S/CO (0-0.99); HIV (1/2) Antibody/Antigen NONREACTIVE (NonReactive); HIV 1/2 INDEX 0.06 S/CO (<1.00); Hep B Surf Ag NONREACTIVE S/CO (NonReactive); Hep C IgG Ab Reflex HepC Qnt S/CO (NonReactive); Hep C Index 7.67 S/CO (0-0.79)
[2024-02-02 05:08] LABS: Anion Gap 15 mmol/L (10-20); BUN (Urea Nitrogen) 39 mg/dL (8.4-25.7); Calc. Creatinine Clearance 32 mL/min (70-130); Calcium 8.7 mg/dL (7.8-10.44); Carbon Dioxide 19 mmol/L (23-31); Chloride 102 mmol/L (98-107); Estimated GFR 35; Glucose 140 mg/dL (83-110); Potassium 3.5 mmol/L (3.5-5.1); Sodium 132 mmol/L (136-145)
[2024-02-03 05:54] LABS: Anion Gap 17 mmol/L (10-20); BUN (Urea Nitrogen) 52 mg/dL (8.4-25.7); Calc. Creatinine Clearance 30 mL/min (70-130); Calcium 8.7 mg/dL (7.8-10.44); Carbon Dioxide 18 mmol/L (23-31); Chloride 100 mmol/L (98-107); Estimated GFR 34; Glucose 146 mg/dL (83-110); Potassium 3.6 mmol/L (3.5-5.1); Sodium 131 mmol/L (136-145)
[2024-02-04 13:06] VITALS: TEMP 97.7
[2024-02-04 18:12] VITALS: BP 111/55
[2024-02-04 20:13] LABS: Hep C PCR-Quant HCV Not Detected IU/mL (.)
== END 2024-02-04 18:00 | disposition hospice, home (50) | DRG 291 ==
LOC: ERS 17:02 → ERHOLD 20:59 → 2NO 01-25 12:07
PROVIDERS: ADMIT Internal Medicine; ATTEND Internal Medicine
PROC: 30233J1 Transfusion of Nonautologous Serum Albumin into Peripheral Vein, Percutaneous Approach (ICD-10-PCS; principal; 2024-01-29)
DX: I13.0 Hypertensive heart and chronic kidney disease with heart failure and stage 1 through stage 4 chronic kidney disease, or unspecified chronic kidney disease (principal); I50.23 Acute on chronic systolic (congestive) heart failure; N17.9 Acute kidney failure, unspecified; I25.10 Atherosclerotic heart disease of native coronary artery without angina pectoris; I48.0 Paroxysmal atrial fibrillation; D63.8 Anemia in other chronic diseases classified elsewhere; E78.00 Pure hypercholesterolemia, unspecified; N18.30 Chronic kidney disease, stage 3 unspecified; E11.22 Type 2 diabetes mellitus with diabetic chronic kidney disease; Z51.5 Encounter for palliative care; Z79.899 Other long term (current) drug therapy; Z87.891 Personal history of nicotine dependence; Z98.890 Other specified postprocedural states; Z79.82 Long term (current) use of aspirin; I25.2 Old myocardial infarction; Z79.84 Long term (current) use of oral hypoglycemic drugs; Z90.49 Acquired absence of other specified parts of digestive tract; I44.7 Left bundle-branch block, unspecified; Z66 Do not resuscitate; I5A Non-ischemic myocardial injury (non-traumatic)
CPT/HCPCS: 36415; 36416; 71045; 80048; 80053; 80061; 83036; 83690; 83735; 83880; 84484; 85025; 86803; 87340; 87522; 87633; 93005; 93010; 93306; 96372; 96374; 97139; J1250; J1650; J1815; J1940; P9047; U0002